=== PATIENT | male | born 1935 | race Caucasian/White ===

== ENCOUNTER → 2018-09-21 | Outpatient (CLI) | payer MEDICARE, BC, OTHER ==
[~2018-09-21] MED LIST: ACET65TA OR; ASPI1TAB PO; COUM1TAB17 OR; DULC5TAB PO; No Historical Meds; PERC5TAB PO; PERC5TAB8 OR; PERC7.5T8 OR; PROT1TAB2 PO
--- NOTE | 2018-09-21 11:03 | REP ---
CT study of the cervical spine without contrast: History: Degenerative disc disease. Technique: Helical scanning is acquired and overlapping 2 mm high resolution axial images were generated and reviewed at bone and soft tissue window settings. Coronal and sagittal multiplanar re-formations images are generated. CT findings: There is straightening of the normal cervical lordosis. Advanced degenerative spondylosis changes are seen. There is irregular osteophyte formation and sclerosis at the articulation between the dens and the anterior arch of C1. There is mild spurring at the C1-2 facet and at the occipital condyles. At C2-3 there is degenerative disc disease with disc osteophyte ossification. The 2-3 disc appears to be fused by bridging osteophytes anteriorly and posteriorly. In addition, the left-sided C2-3 facet joint appears to be fused with hypertrophic spurring noted. There is diffuse disc bulging. Neural foramina appear adequate. At C3-4, there is posterior disc bulging and osteophytic ridging. Bilateral neural foraminal narrowing from uncovertebral spurring is seen, left more so than right. There is some facet hypertrophy bilaterally. Central canal stenosis is noted at L3-4, 6.6 mm AP dimension of the canal in the midline. At C4-5, there is similar less pronounced posterior disc bulging. Bilateral uncovertebral spurring is seen producing mild neural foraminal narrowing at C4-5. This is more prominent on the right than the left. Borderline canal size. At C5-6, there is posterior disc bulging and osteophytic ridging. Bilateral uncovertebral spurring is seen with bilateral neural foraminal narrowing. 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 Mild central canal stenosis is seen at C5-6, the midline AP dimension of the thecal sac is 9.7 mm. At C6-7, there is diffuse disc bulging. Some mild left-sided neural foraminal encroachment is seen from uncovertebral spurring. Borderline canal size. At C7-T1, there is central disc calcification minimal bulging but no neural foraminal narrowing or central canal stenosis is seen. Impression: Fairly advanced degenerative spondylosis changes as noted above. Multilevel neural foraminal narrowing. Central canal stenosis at C3-4. Electronically Signed by Quentin Lo MD 09/21/2018 02:46 P
--- NOTE | 2018-09-21 12:16 | REP ---
Cervical spine MRI study without contrast: History: Neck and arm pain. Comparison cervical spine MRI exam is from May 06, 2016. Comparison CT study is from September 21, 2018. Technique: Sagittal and axial T1 and T2-weighted scans are acquired in the usual fashion with and without fat saturation. Sequences include spin echo, turbo spin-echo, and STIR imaging sequences. MRI findings: There is fairly extensive bony hypertrophy at the C1-2 articulation. This appears to produce moderate central canal stenosis with cord compression. AP dimension of the thecal sac here is 8.6 mm in the midline. There is cord compression along the right side of the canal from bony spurring indenting the cord. This is seen on sagittal images. The axial images do not extend up this high. It appears to be unchanged. No abnormal cord signal intensity is seen at this level. At C2-3, there is posterior disc bulging and osteophytic ridging. No cord compression is seen. Neural foramina appear adequate. At C3-4, there is a left posterior disc protrusion with osteophytic ridging. This effaces the ventral margin of the cord. There is central canal stenosis at this level. Midline AP dimension of the thecal sac at L3-4 is 5.9 mm. There is some dorsal ligamentum flavum hypertrophy here. These findings are unchanged. At C4-5, there is no evidence of central canal stenosis. Mild discogenic spurring is seen. Uncovertebral spurring is noted bilaterally producing some neural foraminal narrowing. This is unchanged. At C5-6, the disc is quite narrowed in vertical height. Posterior osteophytic ridging is seen. This indents the ventral margin of the cord. No overall canal stenosis is seen. Uncovertebral spurring is seen producing neural foraminal narrowing. This is more pronounced on the left. At C6-7, today's study demonstrates a broad-based central disc protrusion flattening the ventral margin of the cord. There is ligamentum flavum hypertrophy dorsally and bilaterally producing central canal stenosis and some cord compression. STIR images demonstrate a new T2 hyperintense lesion in the central cord at the C6-7 disc level consistent with myelomalacia. This is a new finding. The disc protrusion is essentially unchanged. At C7-T1, there is no evidence of disc protrusion or canal stenosis. Neural foramina are adequate. Impression: Advanced degenerative spondylosis changes. Spinal stenosis at the level of the dens and at C6-7. At C6-7 there is a new T2 hyperintense cord lesion consistent with myelomalacia. Electronically Signed by Quentin Lo MD 09/21/2018 02:48 P
== END ==
LOC: M RAD 09:44
PROVIDERS: ATTEND Orthopaedic Surgery
DX: M50.223 Other cervical disc displacement at C6-C7 level (principal); M48.02 Spinal stenosis, cervical region; M50.21 Other cervical disc displacement, high cervical region; M25.78 Osteophyte, vertebrae; M50.31 Other cervical disc degeneration, high cervical region

== ENCOUNTER → 2019-07-16 | Outpatient (CLI) | payer MEDICARE, BC, OTHER ==
--- NOTE | 2019-07-16 19:06 | REPVR ---
PROCEDURE INFORMATION: Exam: MR Lumbar Spine Without Contrast. Exam date and time: 07/16/2019 5:36 PM Age: 83 years old Clinical indication: Pain; Lumbago; Additional info: Radiculopathy TECHNIQUE: Imaging protocol: Multiplanar magnetic resonance images of the lumbar spine without intravenous contrast. COMPARISON: No relevant prior studies available. FINDINGS: Vertebrae: Degenerative spondylosis and shallow levoscoliosis. There are prominent anterior intervertebral osteophytes. Spinal cord: Normal signal. No cord compression. L1-L2: There is a mild central spinal stenosis at L1-L2 secondary to diffuse annular bulging, thickened ligamentum flavum with facet joint arthropathy. There is moderate bilateral foraminal stenosis. No lateral recess stenosis. L2-L3: There is a moderate asymmetrical right greater than left central spinal stenosis at L2-L3 secondary to diffuse annular bulging, thickened ligamentum flavum with facet joint arthropathy. There is severe foraminal stenosis on the right and mild foraminal stenosis on the left. No lateral recess stenosis. L3-L4: There is a mild central spinal stenosis at L3-L4 secondary to diffuse annular bulging, thickened ligamentum flavum with facet joint arthropathy. There is mild foraminal stenosis on the left and severe foraminal stenosis on the right. There is no lateral recess stenosis. L4-L5: There is a mild central spinal stenosis at L4-L5 secondary to diffuse annular bulging, thickened ligamentum flavum with facet joint arthropathy. There is for severe foraminal stenosis on the left and moderate foraminal stenosis on the right. There is mild bilateral lateral recess stenosis demonstrated as well. L5-S1: There is a diffusely bulging annulus at L5-S1 associated with bilateral facet joint arthropathy. There is no central spinal stenosis. There is moderate to severe bilateral foraminal stenosis. There is no lateral recess stenosis. Soft tissues: Unremarkable. IMPRESSION: 1. Degenerative spondylosis with multilevel degenerative spinal stenoses mild at L1-L2, moderate at L2-L3, mild at L3-L4, mild at L4-L5. There is multilevel bilateral foraminal stenoses as described above. 2. Shallow levoscoliosis. Electronically signed by: Tim Brown On 07/16/2019 19:06:14 PM
== END ==
LOC: M RAD 15:07
PROVIDERS: ATTEND Neurological Surgery
DX: M50.30 Other cervical disc degeneration, unspecified cervical region (principal); G57.12 Meralgia paresthetica, left lower limb; G95.9 Disease of spinal cord, unspecified

== ENCOUNTER → 2022-02-21 | Outpatient (CLI) | payer MEDICARE, OTHER, BC | LOC: M PLARAD 14:49 | PROVIDERS: ATTEND Internal Medicine Hematology & Oncology | DX: C44.82 Squamous cell carcinoma of overlapping sites of skin (principal) | CPT/HCPCS: 78815; A9552 ==

== ENCOUNTER → 2022-03-09 | Outpatient (CLI) | payer MEDICARE, BC, OTHER ==
[~2022-03-09] MED LIST changes: +ISOVUE-370 76% 100ML VIAL As Ordered ONE
== END ==
LOC: M RAD 07:51
PROVIDERS: ATTEND Internal Medicine Hematology & Oncology
DX: C44.82 Squamous cell carcinoma of overlapping sites of skin (principal); J01.90 Acute sinusitis, unspecified
CPT/HCPCS: 70470; Q9967

== ENCOUNTER 2023-06-28 06:07 | Emergency (ER) | payer MEDICARE, BC, OTHER ==
[~2023-06-28 06:07] MED LIST changes: +FLOM0.4C39 PO; +GABA800T4 PO; -ISOVUE-370 76% 100ML VIAL As Ordered ONE; +PANT40TA29 PO
[2023-06-28 07:06] LABS: BASO % 0.1 % (0.0-1.0); HEMATOCRIT 33.8 % (42.0-52.0); HEMOGLOBIN 10.6 g/dl (13.5-17.5); LYMPH # 0.7 10^3/uL (1.5-5.0); LYMPH % 3.6 % (24.0-44.0); MEAN CORPUSCULAR HEMOGLOBIN 28.8 pg (27.0-33.0); MEAN CORPUSCULAR HGB CONC 31.4 g/dl (32.0-36.5); MEAN CORPUSCULAR VOLUME 91.8 fl (80.0-96.0); NEUTROPHILS # 15.1 10^3/uL (1.5-8.5); NEUTROPHILS % 78.3 % (36.0-66.0); PLATELET COUNT, AUTOMATED 236 10^3/uL (150-450); RED BLOOD COUNT 3.68 10^6/uL (4.30-6.10); WHITE BLOOD COUNT 19.2 10^3/uL (4.0-10.0)
[2023-06-28 07:19] LABS: MONO # 3.1 10^3/uL (0.0-0.8)
[2023-06-28 07:33] LABS: ALBUMIN 3.2 G/DL (3.2-5.2); ALKALINE PHOSPHATASE 86 U/L (46-116); ALT/SGPT 23 U/L (7.0-40); AST/SGOT 21 U/L (<34); BILIRUBIN,DIRECT 0.3 MG/DL (<0.4); BLOOD UREA NITROGEN 34 MG/DL (9-23); CALCIUM LEVEL 7.8 MG/DL (8.3-10.6); CARBON DIOXIDE LEVEL 25 MMOL/L (20-31); CHLORIDE LEVEL 108 MMOL/L (98-107); CK-MB VALUE MASS < 1.0 NG/ML (<3.6); CPK CREATINE PHOSPHOKINASE 72 U/L (46-171); CREATININE FOR GFR 1.68 MG/DL (0.70-1.30); GLOMERULAR FILTRATION RATE 41.4 (>35); GLUCOSE, FASTING 141 MG/DL (74-106); MB/CK RELATIVE INDEX 1.38 (< OR =4); POTASSIUM SERUM 4.5 MMOL/L (3.5-5.1); SODIUM LEVEL 140 MMOL/L (136-145); TOTAL PROTEIN 6.4 G/DL (5.7-8.2)
[2023-06-28 07:35] LABS: THYROID STIMULATING HORMONE 1.272 uIU/ML (0.55-4.78)
[2023-06-28] MEDS: PIPERACILLIN/TAZOBACTAM SOD 4.5 GM in D5W MINI-BAG PLUS 50 ML IV ONE ×2 (08:10→17:45)
[2023-06-28] MEDS: NS 1,000 ML IV ONE (08:10)
[2023-06-28] MEDS: NS 1,200 ML in IV 1 EA IV ONE (09:02)
[2023-06-28] MEDS: VANCOMYCIN HCL 1,000 MG, VIAL MATE ADAPTER 1 EACH in D5W 250 ML IV ONE ×2 (09:02→17:59)
[2023-06-28] MEDS ORDERED: ACET-683 PO (09:50)
[2023-06-28] MEDS ORDERED: HOME MED LIST COMPLETE! XX SCH (09:50)
[2023-06-28] MEDS ORDERED: ELID1CRE11 TOP (09:50)
[2023-06-28] MEDS: NS 1,000 ML IV SCH (11:10)
[2023-06-28] MEDS: NOREPINEPHRINE 4MG IN D5 250ML 4 MG in IV 1 EA IV SCH (11:56)
[2023-06-28 19:21] VITALS: BP 101/54; TEMP 97.8; O2SAT 96
== END 2023-06-28 19:24 | disposition short-term general hospital (02) ==
LOC: EDBD 06:07 → M ED 06:07
DX: R65.21 Severe sepsis with septic shock (principal); N17.9 Acute kidney failure, unspecified; C44.92 Squamous cell carcinoma of skin, unspecified; T86.822 Skin graft (allograft) (autograft) infection; K21.9 Gastro-esophageal reflux disease without esophagitis; Z79.899 Other long term (current) drug therapy; Z91.89 Other specified personal risk factors, not elsewhere classified
CPT/HCPCS: 36556; 71045; 80048; 80076; 81001; 82550; 82553; 83605; 84443; 84484; 85025; 87040; 87486; 87581; 87633; 87798; 93005; 96365; 96366; 96368; 96375; 96376; 99285; J2543; J3370

== ENCOUNTER 2023-07-12 17:43 | Inpatient (IN) | payer MEDICARE, BC, OTHER ==
[~2023-07-12] VITALS: Ht 172.7 cm; Wt 91.7 kg
[~2023-07-12 17:43] MED LIST changes: +ACET-683 PO; +ELID1CRE11 TOP
[2023-07-12 19:48] LABS: BASO % 0.2 % (0.0-1.0); EOS # 0.1 10^3/uL (0.0-0.5); EOS % 1.5 % (0.0-3.0); HEMATOCRIT 29.9 % (42.0-52.0); HEMOGLOBIN 9.4 g/dl (13.5-17.5); LYMPH # 1.2 10^3/uL (1.5-5.0); LYMPH % 15.1 % (24.0-44.0); MEAN CORPUSCULAR HEMOGLOBIN 28.4 pg (27.0-33.0); MEAN CORPUSCULAR HGB CONC 31.4 g/dl (32.0-36.5); MEAN CORPUSCULAR VOLUME 90.3 fl (80.0-96.0); MONO # 1.5 10^3/uL (0.0-0.8); MONO % 18.5 % (2.0-8.0); NEUTROPHILS # 5.1 10^3/uL (1.5-8.5); NEUTROPHILS % 63.1 % (36.0-66.0); PLATELET COUNT, AUTOMATED 155 10^3/uL (150-450); RED BLOOD COUNT 3.31 10^6/uL (4.30-6.10)
[2023-07-12 19:54] LABS: ERYTHROCYTE SEDIMENTATION RATE 109 mm/hr (0-20)
[2023-07-12] MEDS ORDERED: ISOVUE-370 76% 100ML VIAL As Ordered ONE (20:04)
[2023-07-12] MEDS ORDERED: VANCOMYCIN HCL 1,750 MG in IV FLUID PLACE HOLDER 1 EA IV ONE (20:05)
[2023-07-12] MEDS: PIPERACILLIN/TAZOBACTAM SOD 4.5 GM in D5W MINI-BAG PLUS 50 ML IV ONE (20:08)
[2023-07-12] MEDS: NS 1,000 ML IV ONE (20:08)
[2023-07-12 20:18] LABS: C REACTIVE PROTEIN QUANTITATIV 19.1 MG/DL (<1.0)
[2023-07-12 20:54] LABS: PROCALCITONIN 0.11 ng/ml
[2023-07-12] MEDS: VANCOMYCIN HCL 1,000 MG, VIAL MATE ADAPTER 1 EACH in D5W 250 ML IV ONE (21:24)
[2023-07-12] MEDS: VANCOMYCIN HCL 750 MG, VIAL MATE ADAPTER 1 EACH in D5W 250 ML IV ONE (22:33)
[2023-07-12] MEDS ORDERED: VANCOMYCIN HCL 1,250 MG, VIAL MATE ADAPTER 1 EACH in NS 250 ML IV SCH (23:20)
[2023-07-13] MEDS: NS 1,000 ML IV SCH (00:55)
[2023-07-13 01:26] VITALS: BP 150/86; TEMP 97.8; O2SAT 92
[2023-07-13 06:00] VITALS: BP 118/63; TEMP 97.7; O2SAT 92
[2023-07-13 06:11] LABS: BLOOD UREA NITROGEN 29 MG/DL (9-23); CALCIUM LEVEL 7.8 MG/DL (8.3-10.6); CARBON DIOXIDE LEVEL 24 MMOL/L (20-31); CHLORIDE LEVEL 109 MMOL/L (98-107); CREATININE FOR GFR 1.18 MG/DL (0.70-1.30); GLOMERULAR FILTRATION RATE > 60.0 (>35); GLUCOSE, FASTING 107 MG/DL (74-106); POTASSIUM SERUM 4.4 MMOL/L (3.5-5.1); SODIUM LEVEL 142 MMOL/L (136-145)
[2023-07-13] MEDS ORDERED: SILV50CR EXT (06:17)
[2023-07-13] MEDS ORDERED: BANO25TA PO (06:17)
[2023-07-13] MEDS ORDERED: HOME MED LIST COMPLETE! XX SCH (06:20)
[2023-07-13] MEDS: PANTOPRAZOLE 40MG TAB (PROTONIX) PO SCH ×2 (09:40→20:15)
[2023-07-13 10:11] VITALS: BP 122/86; TEMP 98.6; O2SAT 94
[2023-07-13] MEDS: PIPERACILLIN/TAZOBACTAM SOD 3.375 GM in D5W MINI-BAG PLUS 50 ML IV ONE (11:19)
[2023-07-13 14:28] VITALS: BP 130/65; TEMP 97.9; O2SAT 94
[2023-07-13] MEDS ORDERED: LIDOCAINE 1% MDV 20ML VIAL As Ordered ONE (14:44)
[2023-07-13] MEDS: LACTOBACILLUS ACIDOPHILUS CAP (BACID) PO SCH (14:46)
[2023-07-13] MEDS: VANCOMYCIN HCL 750 MG, VIAL MATE ADAPTER 1 EACH in D5W 250 ML IV SCH (16:59)
[2023-07-13] MEDS: GABAPENTIN 300 MG CAP PO SCH (17:00)
[2023-07-13 18:08] LABS: BASO % 0.3 % (0.0-1.0); EOS # 0.1 10^3/uL (0.0-0.5); EOS % 1.4 % (0.0-3.0); HEMATOCRIT 27.3 % (42.0-52.0); HEMOGLOBIN 8.8 g/dl (13.5-17.5); MEAN CORPUSCULAR HEMOGLOBIN 28.7 pg (27.0-33.0); MEAN CORPUSCULAR HGB CONC 32.2 g/dl (32.0-36.5); MEAN CORPUSCULAR VOLUME 88.9 fl (80.0-96.0); MONO # 1.2 10^3/uL (0.0-0.8); MONO % 17.6 % (2.0-8.0); NEUTROPHILS # 4.5 10^3/uL (1.5-8.5); PLATELET COUNT, AUTOMATED 164 10^3/uL (150-450); RED BLOOD COUNT 3.07 10^6/uL (4.30-6.10)
[2023-07-13] MEDS: VANCOMYCIN HCL 500 MG in D5W MINI-BAG PLUS 100 ML IV SCH (18:21)
[2023-07-13] MEDS: PIPERACILLIN/TAZOBACTAM SOD 3.375 GM in D5W MINI-BAG PLUS 50 ML IV SCH (20:14)
[2023-07-13] MEDS: TAMSULOSIN 0.4 MG CAP PO SCH (20:16)
[2023-07-13 20:49] VITALS: BP 105/55; TEMP 97.7; O2SAT 96
[2023-07-14 07:03] LABS: BASO % 0.5 % (0.0-1.0); EOS # 0.2 10^3/uL (0.0-0.5); EOS % 3.5 % (0.0-3.0); HEMATOCRIT 27.5 % (42.0-52.0); HEMOGLOBIN 8.6 g/dl (13.5-17.5); LYMPH % 17.1 % (24.0-44.0); MEAN CORPUSCULAR HEMOGLOBIN 27.9 pg (27.0-33.0); MEAN CORPUSCULAR HGB CONC 31.3 g/dl (32.0-36.5); MEAN CORPUSCULAR VOLUME 89.3 fl (80.0-96.0); MONO % 16.6 % (2.0-8.0); NEUTROPHILS # 3.5 10^3/uL (1.5-8.5); NEUTROPHILS % 61.1 % (36.0-66.0); PLATELET COUNT, AUTOMATED 165 10^3/uL (150-450); RED BLOOD COUNT 3.08 10^6/uL (4.30-6.10); WHITE BLOOD COUNT 5.8 10^3/uL (4.0-10.0)
[2023-07-14 07:22] LABS: C REACTIVE PROTEIN QUANTITATIV 21.9 MG/DL (<1.0)
[2023-07-14 07:23] LABS: CALCIUM LEVEL 7.9 MG/DL (8.3-10.6); CREATININE FOR GFR 1.27 MG/DL (0.70-1.30); GLOMERULAR FILTRATION RATE 57.2 (>35); POTASSIUM SERUM 4.5 MMOL/L (3.5-5.1)
[2023-07-14 07:29] LABS: PROCALCITONIN 0.11 ng/ml
[2023-07-14] MEDS: HEPARIN SOD (PORCINE) 5000UNITS/ML 1ML VIAL/SYRINGE SQ SCH (09:00)
[2023-07-14] MEDS ORDERED: HEPARIN SOD (PORCINE) 5000UNITS/ML 1ML VIAL/SYRINGE SQ SCH (09:00)
[2023-07-14] MEDS: MUPIROCIN 2% OINT 22 GM TUBE TOP SCH (09:52)
[2023-07-14 14:00] VITALS: BP 105/60; TEMP 98.1; O2SAT 97
[2023-07-14 18:27] LABS: C REACTIVE PROTEIN QUANTITATIV 20.3 MG/DL (<1.0)
[2023-07-14 18:41] LABS: PROCALCITONIN 0.12 ng/ml
[2023-07-14 21:04] VITALS: BP 117/61; TEMP 97.5; O2SAT 96
[2023-07-15 06:00] VITALS: BP 121/62; TEMP 98.2; O2SAT 96
[2023-07-15 07:05] LABS: BASO % 0.5 % (0.0-1.0); EOS # 0.3 10^3/uL (0.0-0.5); EOS % 5.4 % (0.0-3.0); HEMOGLOBIN 8.5 g/dl (13.5-17.5); LYMPH # 1.2 10^3/uL (1.5-5.0); LYMPH % 21.6 % (24.0-44.0); MEAN CORPUSCULAR HGB CONC 31.5 g/dl (32.0-36.5); MEAN CORPUSCULAR VOLUME 88.8 fl (80.0-96.0); MONO # 0.9 10^3/uL (0.0-0.8); MONO % 16.2 % (2.0-8.0); NEUTROPHILS # 3.1 10^3/uL (1.5-8.5); NEUTROPHILS % 54.6 % (36.0-66.0); PLATELET COUNT, AUTOMATED 169 10^3/uL (150-450); RED BLOOD COUNT 3.04 10^6/uL (4.30-6.10); WHITE BLOOD COUNT 5.7 10^3/uL (4.0-10.0)
[2023-07-15 07:26] LABS: CALCIUM LEVEL 7.7 MG/DL (8.3-10.6); CREATININE FOR GFR 1.28 MG/DL (0.70-1.30); GLOMERULAR FILTRATION RATE 56.7 (>35); POTASSIUM SERUM 4.6 MMOL/L (3.5-5.1)
[2023-07-15] MEDS: NS 500 ML IV ONE (08:19)
[2023-07-15] MEDS: ACETAMINOPHEN TAB 650MG DOSE (2X325MG) PO PRN (09:11)
[2023-07-15 14:00] VITALS: BP 134/63; TEMP 97.7; O2SAT 94
[2023-07-15 22:00] VITALS: BP 127/70; TEMP 97.9; O2SAT 96
[2023-07-16 06:34] VITALS: BP 125/68; TEMP 98.1; O2SAT 97
[2023-07-16 06:37] LABS: BASO % 0.4 % (0.0-1.0); EOS # 0.3 10^3/uL (0.0-0.5); EOS % 6.2 % (0.0-3.0); HEMATOCRIT 26.9 % (42.0-52.0); HEMOGLOBIN 8.6 g/dl (13.5-17.5); LYMPH # 0.9 10^3/uL (1.5-5.0); LYMPH % 18.6 % (24.0-44.0); MEAN CORPUSCULAR HEMOGLOBIN 28.6 pg (27.0-33.0); MEAN CORPUSCULAR VOLUME 89.4 fl (80.0-96.0); MONO # 0.8 10^3/uL (0.0-0.8); NEUTROPHILS # 2.9 10^3/uL (1.5-8.5); NEUTROPHILS % 57.8 % (36.0-66.0); PLATELET COUNT, AUTOMATED 168 10^3/uL (150-450); RED BLOOD COUNT 3.01 10^6/uL (4.30-6.10)
[2023-07-16 07:04] LABS: C REACTIVE PROTEIN QUANTITATIV 8.5 MG/DL (<1.0)
[2023-07-16 07:05] LABS: CALCIUM LEVEL 7.5 MG/DL (8.3-10.6); CREATININE FOR GFR 1.28 MG/DL (0.70-1.30); GLOMERULAR FILTRATION RATE 56.7 (>35); POTASSIUM SERUM 4.8 MMOL/L (3.5-5.1)
[2023-07-16 14:10] VITALS: BP 122/66; TEMP 97.9; O2SAT 97
[2023-07-16 20:39] VITALS: BP 130/74; TEMP 97.9; O2SAT 98
[2023-07-17 06:11] VITALS: BP 130/73; TEMP 98.1; O2SAT 96
[2023-07-17 06:54] LABS: BASO % 0.4 % (0.0-1.0); EOS # 0.3 10^3/uL (0.0-0.5); EOS % 5.9 % (0.0-3.0); HEMATOCRIT 30.9 % (42.0-52.0); HEMOGLOBIN 9.6 g/dl (13.5-17.5); LYMPH # 1.4 10^3/uL (1.5-5.0); LYMPH % 25.5 % (24.0-44.0); MEAN CORPUSCULAR HEMOGLOBIN 27.7 pg (27.0-33.0); MEAN CORPUSCULAR HGB CONC 31.1 g/dl (32.0-36.5); MEAN CORPUSCULAR VOLUME 89.3 fl (80.0-96.0); MONO # 0.8 10^3/uL (0.0-0.8); MONO % 13.8 % (2.0-8.0); NEUTROPHILS # 2.9 10^3/uL (1.5-8.5); NEUTROPHILS % 53.1 % (36.0-66.0); PLATELET COUNT, AUTOMATED 189 10^3/uL (150-450); RED BLOOD COUNT 3.46 10^6/uL (4.30-6.10); WHITE BLOOD COUNT 5.4 10^3/uL (4.0-10.0)
[2023-07-17 07:23] LABS: C REACTIVE PROTEIN QUANTITATIV 8.3 MG/DL (<1.0)
[2023-07-17 07:25] LABS: CALCIUM LEVEL 7.9 MG/DL (8.3-10.6); CREATININE FOR GFR 1.29 MG/DL (0.70-1.30); GLOMERULAR FILTRATION RATE 56.2 (>35); MAGNESIUM LEVEL 2.2 MG/DL (1.8-2.4); POTASSIUM SERUM 4.8 MMOL/L (3.5-5.1)
[2023-07-17 14:16] VITALS: BP 128/67; TEMP 98.1; O2SAT 97
[2023-07-17 20:15] VITALS: BP 127/71; TEMP 98.1; O2SAT 95
[2023-07-17] MEDS: BALMEX CREAM 60GM TOP SCH (21:41)
[2023-07-18 04:18] VITALS: BP 109/56; TEMP 98.1; O2SAT 92
[2023-07-18 07:30] VITALS: BP 124/72; TEMP 98.2; O2SAT 93
[2023-07-18 07:36] LABS: BASO % 0.3 % (0.0-1.0); EOS # 0.3 10^3/uL (0.0-0.5); EOS % 5.2 % (0.0-3.0); HEMATOCRIT 30.1 % (42.0-52.0); HEMOGLOBIN 9.4 g/dl (13.5-17.5); LYMPH # 1.3 10^3/uL (1.5-5.0); LYMPH % 20.9 % (24.0-44.0); MEAN CORPUSCULAR HGB CONC 31.2 g/dl (32.0-36.5); MEAN CORPUSCULAR VOLUME 89.6 fl (80.0-96.0); MONO # 0.9 10^3/uL (0.0-0.8); MONO % 14.7 % (2.0-8.0); NEUTROPHILS # 3.6 10^3/uL (1.5-8.5); NEUTROPHILS % 57.5 % (36.0-66.0); PLATELET COUNT, AUTOMATED 190 10^3/uL (150-450); RED BLOOD COUNT 3.36 10^6/uL (4.30-6.10); WHITE BLOOD COUNT 6.3 10^3/uL (4.0-10.0)
[2023-07-18 14:14] VITALS: BP 133/78; TEMP 97.9; O2SAT 97
[2023-07-19] MEDS: HYDROMORPHONE HCL 0.5 MG/ 0.5 ML SYRINGE IV PRN (01:18)
[2023-07-19 06:46] VITALS: BP 125/61; TEMP 97.9; O2SAT 96
[2023-07-19 07:16] LABS: BASO % 0.2 % (0.0-1.0); EOS # 0.3 10^3/uL (0.0-0.5); EOS % 5.5 % (0.0-3.0); HEMOGLOBIN 8.8 g/dl (13.5-17.5); LYMPH # 1.3 10^3/uL (1.5-5.0); MEAN CORPUSCULAR HEMOGLOBIN 28.1 pg (27.0-33.0); MEAN CORPUSCULAR HGB CONC 31.4 g/dl (32.0-36.5); MEAN CORPUSCULAR VOLUME 89.5 fl (80.0-96.0); MONO # 0.9 10^3/uL (0.0-0.8); MONO % 16.2 % (2.0-8.0); NEUTROPHILS # 2.9 10^3/uL (1.5-8.5); NEUTROPHILS % 53.3 % (36.0-66.0); PLATELET COUNT, AUTOMATED 190 10^3/uL (150-450); RED BLOOD COUNT 3.13 10^6/uL (4.30-6.10); WHITE BLOOD COUNT 5.5 10^3/uL (4.0-10.0)
[2023-07-19 14:00] VITALS: BP 126/80; TEMP 97.9; O2SAT 100
[2023-07-19 20:29] VITALS: BP 134/71; TEMP 98.2; O2SAT 99
[2023-07-20 06:37] VITALS: BP 119/60; TEMP 98.4; O2SAT 97
[2023-07-20 07:12] LABS: BASO % 0.3 % (0.0-1.0); EOS # 0.3 10^3/uL (0.0-0.5); EOS % 5.9 % (0.0-3.0); HEMATOCRIT 27.8 % (42.0-52.0); HEMOGLOBIN 8.8 g/dl (13.5-17.5); LYMPH # 1.3 10^3/uL (1.5-5.0); LYMPH % 21.8 % (24.0-44.0); MEAN CORPUSCULAR HEMOGLOBIN 28.1 pg (27.0-33.0); MEAN CORPUSCULAR HGB CONC 31.7 g/dl (32.0-36.5); MEAN CORPUSCULAR VOLUME 88.8 fl (80.0-96.0); MONO # 0.9 10^3/uL (0.0-0.8); MONO % 15.9 % (2.0-8.0); NEUTROPHILS # 3.1 10^3/uL (1.5-8.5); NEUTROPHILS % 54.2 % (36.0-66.0); PLATELET COUNT, AUTOMATED 200 10^3/uL (150-450); RED BLOOD COUNT 3.13 10^6/uL (4.30-6.10); WHITE BLOOD COUNT 5.8 10^3/uL (4.0-10.0)
[2023-07-20 14:00] VITALS: TEMP 97.3; TEMP 98.4; O2SAT 94; O2SAT 96
[2023-07-20 19:49] VITALS: BP 108/60; TEMP 98.4; O2SAT 95
[2023-07-21 04:18] VITALS: BP 145/69; TEMP 98.2; O2SAT 96
[2023-07-21 06:29] LABS: BASO % 0.3 % (0.0-1.0); EOS # 0.4 10^3/uL (0.0-0.5); EOS % 6.4 % (0.0-3.0); HEMATOCRIT 26.8 % (42.0-52.0); HEMOGLOBIN 8.4 g/dl (13.5-17.5); LYMPH # 1.2 10^3/uL (1.5-5.0); LYMPH % 20.1 % (24.0-44.0); MEAN CORPUSCULAR HEMOGLOBIN 27.7 pg (27.0-33.0); MEAN CORPUSCULAR HGB CONC 31.3 g/dl (32.0-36.5); MEAN CORPUSCULAR VOLUME 88.4 fl (80.0-96.0); MONO % 16.2 % (2.0-8.0); NEUTROPHILS # 3.3 10^3/uL (1.5-8.5); NEUTROPHILS % 55.5 % (36.0-66.0); PLATELET COUNT, AUTOMATED 189 10^3/uL (150-450); RED BLOOD COUNT 3.03 10^6/uL (4.30-6.10); WHITE BLOOD COUNT 5.9 10^3/uL (4.0-10.0)
[2023-07-21 13:55] VITALS: BP 125/64; TEMP 98.5; O2SAT 97
[2023-07-21] MEDS: LINEZOLID 600MG TABLET (ZYVOX) PO SCH (14:12)
[2023-07-21 14:54] LABS: CREATININE FOR GFR 1.51 MG/DL (0.70-1.30); GLOMERULAR FILTRATION RATE 46.9 (>35); POTASSIUM SERUM 4.5 MMOL/L (3.5-5.1)
[2023-07-21] MEDS: ENOXAPARIN 100MG/1ML SYRINGE (J1650 PER 10MG) SC SCH (16:58)
[2023-07-21] MEDS: NS 1,000 ML IV SCH (16:58)
[2023-07-21] MEDS ORDERED: PIPERACILLIN/TAZOBACTAM SOD 2.25 GM in D5W MINI-BAG PLUS 50 ML IV SCH (18:00)
[2023-07-21] MEDS: PIPERACILLIN/TAZOBACTAM SOD 2.25 GM in D5W MINI-BAG PLUS 50 ML IV SCH (19:49)
[2023-07-21 19:57] VITALS: BP 132/68; TEMP 97.9; O2SAT 98
[2023-07-22 07:04] VITALS: BP 129/66; TEMP 97.9; O2SAT 96
[2023-07-22 07:23] LABS: BASO % 0.4 % (0.0-1.0); EOS # 0.4 10^3/uL (0.0-0.5); EOS % 6.2 % (0.0-3.0); HEMATOCRIT 28.4 % (42.0-52.0); HEMOGLOBIN 8.8 g/dl (13.5-17.5); LYMPH # 1.3 10^3/uL (1.5-5.0); LYMPH % 23.1 % (24.0-44.0); MEAN CORPUSCULAR HEMOGLOBIN 27.7 pg (27.0-33.0); MEAN CORPUSCULAR VOLUME 89.3 fl (80.0-96.0); MONO # 0.9 10^3/uL (0.0-0.8); NEUTROPHILS # 2.8 10^3/uL (1.5-8.5); NEUTROPHILS % 50.4 % (36.0-66.0); PLATELET COUNT, AUTOMATED 207 10^3/uL (150-450); RED BLOOD COUNT 3.18 10^6/uL (4.30-6.10); WHITE BLOOD COUNT 5.6 10^3/uL (4.0-10.0)
[2023-07-22 07:46] LABS: CALCIUM LEVEL 7.8 MG/DL (8.3-10.6); CREATININE FOR GFR 1.26 MG/DL (0.70-1.30); GLOMERULAR FILTRATION RATE 57.8 (>35); POTASSIUM SERUM 4.5 MMOL/L (3.5-5.1)
[2023-07-22 14:39] VITALS: BP 138/76; TEMP 98.1; O2SAT 98
[2023-07-22 19:56] VITALS: BP 139/72; TEMP 98.2; O2SAT 97
[2023-07-23 04:53] VITALS: BP 131/63; TEMP 97.9; O2SAT 98
[2023-07-23 07:58] LABS: BASO % 0.4 % (0.0-1.0); EOS # 0.3 10^3/uL (0.0-0.5); HEMATOCRIT 28.4 % (42.0-52.0); LYMPH # 1.2 10^3/uL (1.5-5.0); LYMPH % 22.1 % (24.0-44.0); MEAN CORPUSCULAR HGB CONC 31.7 g/dl (32.0-36.5); MEAN CORPUSCULAR VOLUME 88.2 fl (80.0-96.0); MONO # 0.9 10^3/uL (0.0-0.8); MONO % 16.2 % (2.0-8.0); NEUTROPHILS % 53.9 % (36.0-66.0); PLATELET COUNT, AUTOMATED 222 10^3/uL (150-450); RED BLOOD COUNT 3.22 10^6/uL (4.30-6.10); WHITE BLOOD COUNT 5.6 10^3/uL (4.0-10.0)
[2023-07-23 08:35] LABS: CALCIUM LEVEL 7.8 MG/DL (8.3-10.6); CREATININE FOR GFR 1.29 MG/DL (0.70-1.30); GLOMERULAR FILTRATION RATE 56.2 (>35); POTASSIUM SERUM 4.4 MMOL/L (3.5-5.1)
[2023-07-23] MEDS: ONDANSETRON 4MG 2ML VIAL IV PRN (08:55)
[2023-07-23 14:08] VITALS: BP 127/67; TEMP 98.3; O2SAT 98
[2023-07-23] MEDS: PIPERACILLIN/TAZOBACTAM SOD 3.375 GM in D5W MINI-BAG PLUS 50 ML IV SCH (19:54)
[2023-07-23 22:11] VITALS: BP 129/64; TEMP 98.1; O2SAT 97
[2023-07-24 05:09] VITALS: BP 117/65; TEMP 97.7; O2SAT 98
[2023-07-24 06:46] LABS: BASO % 0.5 % (0.0-1.0); EOS # 0.3 10^3/uL (0.0-0.5); EOS % 5.4 % (0.0-3.0); HEMATOCRIT 29.3 % (42.0-52.0); HEMOGLOBIN 9.2 g/dl (13.5-17.5); LYMPH # 1.1 10^3/uL (1.5-5.0); LYMPH % 20.4 % (24.0-44.0); MEAN CORPUSCULAR HGB CONC 31.4 g/dl (32.0-36.5); MEAN CORPUSCULAR VOLUME 89.1 fl (80.0-96.0); MONO % 17.3 % (2.0-8.0); NEUTROPHILS % 53.9 % (36.0-66.0); PLATELET COUNT, AUTOMATED 216 10^3/uL (150-450); RED BLOOD COUNT 3.29 10^6/uL (4.30-6.10); WHITE BLOOD COUNT 5.6 10^3/uL (4.0-10.0)
[2023-07-24 07:12] LABS: CALCIUM LEVEL 8.2 MG/DL (8.3-10.6); CREATININE FOR GFR 1.38 MG/DL (0.70-1.30); POTASSIUM SERUM 4.6 MMOL/L (3.5-5.1)
[2023-07-24] MEDS: NS 1,000 ML IV SCH (11:00)
[2023-07-24] MEDS: MAALOX 30 ML SUSP *UDC PO PRN (12:29)
[2023-07-24 14:00] VITALS: BP 130/70; TEMP 97.4; O2SAT 97
[2023-07-24] MEDS: MIRALAX *UNIT DOSE* 17GM PACKET PO PRN (15:01)
[2023-07-24] MEDS: LORazepam 0.5 MG TAB PO ONE (21:27)
== END 2023-07-24 21:30 | disposition short-term general hospital (02) | DRG 862 ==
LOC: M ED 17:43 → M ED INP 23:16 → M MSPAV 07-13 01:26 → M MS5PR 07-13 18:40
PROVIDERS: ADMIT Internal Medicine; ATTEND Internal Medicine
PROC: 0W9830Z Drainage of Chest Wall with Drainage Device, Percutaneous Approach (ICD-10-PCS; 2023-07-13)
PROC: B246ZZZ Ultrasonography of Right and Left Heart (ICD-10-PCS; principal; 2023-07-21)
DX: T81.41XA Infection following a procedure, superficial incisional surgical site, initial encounter (principal); I26.99 Other pulmonary embolism without acute cor pulmonale; L76.33 Postprocedural seroma of skin and subcutaneous tissue following a dermatologic procedure; L03.111 Cellulitis of right axilla; L03.313 Cellulitis of chest wall; N17.9 Acute kidney failure, unspecified; K21.9 Gastro-esophageal reflux disease without esophagitis; Y83.8 Other surgical procedures as the cause of abnormal reaction of the patient, or of later complication, without mention of misadventure at the time of the procedure; N40.1 Benign prostatic hyperplasia with lower urinary tract symptoms; G89.29 Other chronic pain; D64.9 Anemia, unspecified; G62.9 Polyneuropathy, unspecified; Z92.3 Personal history of irradiation; N18.9 Chronic kidney disease, unspecified; Z79.899 Other long term (current) drug therapy; Z94.5 Skin transplant status; Z96.643 Presence of artificial hip joint, bilateral; Z92.23 Personal history of estrogen therapy; Z85.79 Personal history of other malignant neoplasms of lymphoid, hematopoietic and related tissues; Z85.828 Personal history of other malignant neoplasm of skin

== ENCOUNTER 2023-08-07 13:12 | Emergency (ER) | payer MEDICARE, BC ==
[~2023-08-07] VITALS: Ht 170.2 cm; Wt 90.6 kg
[~2023-08-07 13:12] MED LIST changes: +BANO25TA PO; +SILV50CR EXT
[2023-08-07 17:42] LABS: BASO % 0.4 % (0.0-1.0); EOS # 0.2 10^3/uL (0.0-0.5); EOS % 4.5 % (0.0-3.0); HEMATOCRIT 31.7 % (42.0-52.0); HEMOGLOBIN 9.6 g/dl (13.5-17.5); LYMPH # 1.7 10^3/uL (1.5-5.0); LYMPH % 34.5 % (24.0-44.0); MEAN CORPUSCULAR HEMOGLOBIN 27.3 pg (27.0-33.0); MEAN CORPUSCULAR HGB CONC 30.3 g/dl (32.0-36.5); MEAN CORPUSCULAR VOLUME 90.1 fl (80.0-96.0); MONO # 0.8 10^3/uL (0.0-0.8); MONO % 15.6 % (2.0-8.0); NEUTROPHILS # 2.2 10^3/uL (1.5-8.5); NEUTROPHILS % 43.8 % (36.0-66.0); PLATELET COUNT, AUTOMATED 193 10^3/uL (150-450); RED BLOOD COUNT 3.52 10^6/uL (4.30-6.10); WHITE BLOOD COUNT 4.9 10^3/uL (4.0-10.0)
[2023-08-07 18:15] LABS: ALBUMIN 2.8 G/DL (3.2-5.2); ALKALINE PHOSPHATASE 104 U/L (46-116); ALT/SGPT 28 U/L (7.0-40); AST/SGOT 34 U/L (<34); BILIRUBIN,DIRECT 0.1 MG/DL (<0.4); BILIRUBIN,TOTAL 0.5 MG/DL (0.3-1.2); BLOOD UREA NITROGEN 30 MG/DL (9-23); CALCIUM LEVEL 8.3 MG/DL (8.3-10.6); CARBON DIOXIDE LEVEL 24 MMOL/L (20-31); CHLORIDE LEVEL 106 MMOL/L (98-107); CREATININE FOR GFR 1.08 MG/DL (0.70-1.30); GLOMERULAR FILTRATION RATE > 60.0 (>35); GLUCOSE, FASTING 101 MG/DL (74-106); POTASSIUM SERUM 5.1 MMOL/L (3.5-5.1); SODIUM LEVEL 138 MMOL/L (136-145); TOTAL PROTEIN 7.6 G/DL (5.7-8.2)
[2023-08-07 18:26] LABS: PROCALCITONIN 0.15 ng/ml
[2023-08-07] MEDS ORDERED: ISOVUE-370 76% 100ML VIAL As Ordered ONE (18:44)
[2023-08-07] MEDS ORDERED: ENOXAPARIN 100MG/1ML SYRINGE (J1650 PER 10MG) SC ONE (21:15)
[2023-08-07 21:20] VITALS: BP 136/66; TEMP 98; O2SAT 97
[2023-08-07] MEDS: ENOXAPARIN 100MG/1ML SYRINGE (J1650 PER 10MG) SC ONE (21:25)
== END 2023-08-07 21:33 | disposition home or self-care (01) ==
LOC: M ED 13:12
DX: L76.34 Postprocedural seroma of skin and subcutaneous tissue following other procedure (principal); Z79.899 Other long term (current) drug therapy
CPT/HCPCS: 71045; 71260; 74177; 80048; 80076; 83605; 84145; 85025; 86140; 87040; 93005; 96372; 99284; J1650; Q9967

== ENCOUNTER → 2024-05-29 | Outpatient (CLI) | payer MEDICARE, BC ==
[~2024-05-29] MED LIST changes: +GABA-1635 PO; -GABA800T4 PO
[2024-05-29 13:38] LABS: CALCIUM LEVEL 8.4 MG/DL (8.3-10.6); CREATININE FOR GFR 1.65 MG/DL (0.70-1.30); GLOMERULAR FILTRATION RATE 42.2 (>35); POTASSIUM SERUM 4.4 MMOL/L (3.5-5.1)
[2024-05-29 14:00] LABS: BASO % 0.1 % (0.0-1.0); HEMATOCRIT 35.9 % (42.0-52.0); HEMOGLOBIN 11.5 g/dl (13.5-17.5); LYMPH # 1.3 10^3/uL (1.5-5.0); LYMPH % 14.5 % (24.0-44.0); MEAN CORPUSCULAR HEMOGLOBIN 26.7 pg (27.0-33.0); MEAN CORPUSCULAR VOLUME 83.3 fl (80.0-96.0); MONO # 0.7 10^3/uL (0.0-0.8); MONO % 8.3 % (2.0-8.0); NEUTROPHILS # 6.6 10^3/uL (1.5-8.5); NEUTROPHILS % 75.3 % (36.0-66.0); PLATELET COUNT, AUTOMATED 189 10^3/uL (150-450); RED BLOOD COUNT 4.31 10^6/uL (4.30-6.10); WHITE BLOOD COUNT 8.8 10^3/uL (4.0-10.0)
[2024-05-29 14:05] LABS: ERYTHROCYTE SEDIMENTATION RATE 66 mm/hr (0-20)
== END ==
LOC: M ADAMS 10:31
PROVIDERS: ATTEND Internal Medicine
DX: J15.8 Pneumonia due to other specified bacteria (principal)

== ENCOUNTER 2024-06-11 21:15 | Inpatient (IN) | payer MEDICARE, BC ==
[~2024-06-11] VITALS: Ht 172.7 cm; Wt 84.1 kg
[2024-06-11] MEDS ORDERED: ELIQ5TAB PO (22:01)
[2024-06-11] MEDS ORDERED: RISP1SS PO (22:01)
[2024-06-11] MEDS ORDERED: ROPI5TAB19 PO (22:01)
[2024-06-11 22:22] LABS: VENOUS BASE EXCESS -1.3 (-2.0-2.0); VENOUS HCO3 24.1 MMOL/L (23.0-27.0); VENOUS O2 SATURATION 80.2 % (60.0-80.0); VENOUS PARTIAL PRESSURE CO2 43.2 mmHg (38.0-50.0); VENOUS PARTIAL PRESSURE O2 46.1 mmHg (30.0-50.0); VENOUS PH 7.365 UNITS (7.330-7.430); VENOUS TOTAL CO2 25.5 MMOL/L (24.0-28.0)
[2024-06-11] MEDS ORDERED: ISOVUE-370 76% 100ML VIAL As Ordered ONE (22:28)
[2024-06-11 22:29] LABS: BASO % 0.2 % (0.0-1.0); EOS % 0.2 % (0.0-3.0); HEMATOCRIT 36.8 % (42.0-52.0); HEMOGLOBIN 11.8 g/dl (13.5-17.5); LYMPH # 0.9 10^3/uL (1.5-5.0); LYMPH % 4.7 % (24.0-44.0); MEAN CORPUSCULAR HEMOGLOBIN 26.6 pg (27.0-33.0); MEAN CORPUSCULAR HGB CONC 32.1 g/dl (32.0-36.5); MEAN CORPUSCULAR VOLUME 82.9 fl (80.0-96.0); MONO # 2.3 10^3/uL (0.0-0.8); MONO % 11.8 % (2.0-8.0); NEUTROPHILS # 16.2 10^3/uL (1.5-8.5); NEUTROPHILS % 81.5 % (36.0-66.0); PLATELET COUNT, AUTOMATED 182 10^3/uL (150-450); RED BLOOD COUNT 4.44 10^6/uL (4.30-6.10); WHITE BLOOD COUNT 19.8 10^3/uL (4.0-10.0)
[2024-06-11 22:50] LABS: CK-MB VALUE MASS < 1.0 NG/ML (<3.6)
[2024-06-11 22:52] LABS: ALBUMIN 3.3 G/DL (3.2-5.2); ALKALINE PHOSPHATASE 105 U/L (40-129); ALT/SGPT 29 U/L (7.0-40); AST/SGOT 27 U/L (<34); BILIRUBIN,DIRECT 0.4 MG/DL (<0.4); BILIRUBIN,TOTAL 1.4 MG/DL (0.3-1.2); BLOOD UREA NITROGEN 35 MG/DL (9-23); CALCIUM LEVEL 8.9 MG/DL (8.3-10.6); CARBON DIOXIDE LEVEL 28 MMOL/L (20-31); CHLORIDE LEVEL 104 MMOL/L (98-107); CPK CREATINE PHOSPHOKINASE 40 U/L (46-171); CREATININE FOR GFR 1.33 MG/DL (0.70-1.30); GLOMERULAR FILTRATION RATE 54.1 (>35); GLUCOSE, FASTING 114 MG/DL (74-106); POTASSIUM SERUM 4.8 MMOL/L (3.5-5.1); SODIUM LEVEL 138 MMOL/L (136-145); TOTAL PROTEIN 6.8 G/DL (5.7-8.2)
[2024-06-11] MEDS ORDERED: IPRA0.00 INH (23:51)
[2024-06-11] MEDS ORDERED: HYDR-3719 PO (23:51)
[2024-06-11] MEDS ORDERED: RISP0.253 PO (23:51)
[2024-06-11] MEDS ORDERED: SILV50CR TOP (23:53)
[2024-06-11] MEDS ORDERED: HOME MED LIST COMPLETE! XX SCH (23:55)
[2024-06-12 00:42] LABS: CK-MB VALUE MASS < 1.0 NG/ML (<3.6)
[2024-06-12 00:44] LABS: CPK CREATINE PHOSPHOKINASE 31 U/L (46-171); MB/CK RELATIVE INDEX 3.22 (< OR =4)
[2024-06-12] MEDS ORDERED: MAALOX 30 ML SUSP *UDC PO PRN (04:40)
[2024-06-12] MEDS ORDERED: LEVALBUTEROL 1.25MG 0.5ML CONCENTRATE NEB INH PRN (04:40)
[2024-06-12] MEDS ORDERED: MOM 30ML SUSPENSION UDC PO PRN (04:40)
[2024-06-12 06:57] LABS: PROCALCITONIN 0.98 ng/ml
[2024-06-12] MEDS: IPRATROPIUM 0.5MG/ALBUTEROL 2.5MG INH SOL UD 3ML (DUONEB) NEB SCH (07:29)
[2024-06-12 08:00] VITALS: BP 121/62; TEMP 98.2; O2SAT 90
[2024-06-12 08:35] LABS: CALCIUM LEVEL 8.3 MG/DL (8.3-10.6); CREATININE FOR GFR 1.25 MG/DL (0.70-1.30); GLOMERULAR FILTRATION RATE 58.2 (>35); POTASSIUM SERUM 4.8 MMOL/L (3.5-5.1)
[2024-06-12] MEDS ORDERED: OSELTAMIVIR PHOSPHATE 75 MG CAP (TAMIFLU) PO SCH (09:00)
[2024-06-12] MEDS: predniSONE 20 MG TAB PO SCH (09:05)
[2024-06-12] MEDS: DOCUSATE SODIUM 100MG CAPSULE PO SCH (09:05)
[2024-06-12] MEDS: APIXABAN 5 MG TAB (ELIQUIS) PO SCH (09:05)
[2024-06-12] MEDS: OSELTAMIVIR PHOSPHATE 30MG CAPSULE PO SCH (09:19)
[2024-06-12 09:24] LABS: BASO % 0.1 % (0.0-1.0); EOS # 0.1 10^3/uL (0.0-0.5); EOS % 0.7 % (0.0-3.0); HEMATOCRIT 35.7 % (42.0-52.0); HEMOGLOBIN 11.3 g/dl (13.5-17.5); LYMPH # 2.1 10^3/uL (1.5-5.0); LYMPH % 12.3 % (24.0-44.0); MEAN CORPUSCULAR HEMOGLOBIN 26.5 pg (27.0-33.0); MEAN CORPUSCULAR HGB CONC 31.7 g/dl (32.0-36.5); MEAN CORPUSCULAR VOLUME 83.6 fl (80.0-96.0); MONO # 2.3 10^3/uL (0.0-0.8); MONO % 13.5 % (2.0-8.0); NEUTROPHILS % 72.1 % (36.0-66.0); PLATELET COUNT, AUTOMATED 165 10^3/uL (150-450); RED BLOOD COUNT 4.27 10^6/uL (4.30-6.10); WHITE BLOOD COUNT 16.7 10^3/uL (4.0-10.0)
[2024-06-12] MEDS: GABAPENTIN 400MG CAP PO SCH (11:40)
[2024-06-12] MEDS: rOPINIRole 0.25 MG TAB(REQUIP) PO SCH (11:41)
[2024-06-12] MEDS: PANTOPRAZOLE 40MG TAB (PROTONIX) PO SCH (11:41)
[2024-06-12] MEDS: AUGMENTIN 875 MG TAB PO SCH (11:41)
[2024-06-12] MEDS: NS (Normal Saline) 0.9% 1,000 ML IV SCH (11:41)
[2024-06-12 12:55] VITALS: BP 133/80; TEMP 98.1; O2SAT 92
[2024-06-12 14:12] LABS: KETONE, URINE AUTO RFX NEGATIVE (NEGATIVE); LEUKOCYTE ESTERASE UR AUTO RFX NEGATIVE (NEGATIVE); NITRITE, URINE AUTO RFX NEGATIVE (NEGATIVE); RBC, URINE AUTO RFX 0 /HPF (0-3); SQUAM EPITHELIAL CELL UR AURFX 0 /HPF (0-6); WBC, URINE AUTO RFX 0 /HPF (0-3)
[2024-06-12] MEDS: ACETAMINOPHEN 325 MG TAB PO PRN (16:51)
[2024-06-12 18:25] VITALS: O2SAT 77; O2SAT 92
[2024-06-12 19:58] VITALS: BP 128/61; TEMP 97.9; O2SAT 96
[2024-06-12] MEDS: TAMSULOSIN 0.4 MG CAP PO SCH (20:58)
[2024-06-12] MEDS ORDERED: FLUID PLACE HOLDER IV SCH (22:50)
[2024-06-12] MEDS ORDERED: VANCOMYCIN HCL IV SCH (22:50)
[2024-06-12] MEDS: VANCOMYCIN HCL 2,000 MG, VIAL MATE ADAPTER 1 EACH in NS 500 ML IV ONE (23:31)
[2024-06-13] VITALS: BP 108/52; TEMP 97.7; O2SAT 96
[2024-06-13 04:12] VITALS: BP 113/60; TEMP 97.9; O2SAT 98
[2024-06-13 06:52] LABS: HEMATOCRIT 30.8 % (42.0-52.0); HEMOGLOBIN 9.8 g/dl (13.5-17.5); MEAN CORPUSCULAR HEMOGLOBIN 26.7 pg (27.0-33.0); MEAN CORPUSCULAR HGB CONC 31.8 g/dl (32.0-36.5); MEAN CORPUSCULAR VOLUME 83.9 fl (80.0-96.0); PLATELET COUNT, AUTOMATED 134 10^3/uL (150-450); RED BLOOD COUNT 3.67 10^6/uL (4.30-6.10); WHITE BLOOD COUNT 7.1 10^3/uL (4.0-10.0)
[2024-06-13 07:32] LABS: ALBUMIN 2.6 G/DL (3.2-5.2); CALCIUM LEVEL 8.1 MG/DL (8.3-10.6); CREATININE FOR GFR 1.23 MG/DL (0.70-1.30); GLOMERULAR FILTRATION RATE 59.3 (>35); POTASSIUM SERUM 4.5 MMOL/L (3.5-5.1); TOTAL PROTEIN 5.6 G/DL (5.7-8.2)
[2024-06-13 08:57] VITALS: O2SAT 2
[2024-06-13] MEDS ORDERED: VANCOMYCIN HCL 1,250 MG, VIAL MATE ADAPTER 1 EACH in NS 250 ML IV SCH (09:00)
[2024-06-13 12:00] VITALS: BP 118/62; TEMP 97.7; O2SAT 96
[2024-06-13 20:00] VITALS: BP 114/62; TEMP 97.5; O2SAT 95
[2024-06-14 04:00] VITALS: BP 114/63; TEMP 98.4; O2SAT 92
[2024-06-14 09:47] LABS: MEAN CORPUSCULAR HEMOGLOBIN 26.6 pg (27.0-33.0); MEAN CORPUSCULAR HGB CONC 31.4 g/dl (32.0-36.5); MEAN CORPUSCULAR VOLUME 84.5 fl (80.0-96.0); PLATELET COUNT, AUTOMATED 147 10^3/uL (150-450); RED BLOOD COUNT 4.14 10^6/uL (4.30-6.10); WHITE BLOOD COUNT 6.9 10^3/uL (4.0-10.0)
[2024-06-14 10:16] LABS: BLOOD UREA NITROGEN 35 MG/DL (9-23); CARBON DIOXIDE LEVEL 24 MMOL/L (20-31); CHLORIDE LEVEL 108 MMOL/L (98-107); CREATININE FOR GFR 1.16 MG/DL (0.70-1.30); GLOMERULAR FILTRATION RATE > 60.0 (>35); GLUCOSE, FASTING 113 MG/DL (74-106); POTASSIUM SERUM 4.7 MMOL/L (3.5-5.1); SODIUM LEVEL 141 MMOL/L (136-145)
[2024-06-14] MEDS ORDERED: AMOX875T2 PO (11:09)
[2024-06-14] MEDS ORDERED: OSEL30CA PO (11:09)
== END 2024-06-14 12:29 | disposition home or self-care (01) | DRG 194 ==
LOC: EDBD 21:15 → M ED 21:15 → M ED INP 06-12 04:36 → M MSPAV 06-12 05:35
PROVIDERS: ADMIT Student in an Organized Health Care Education/Training Program; ATTEND Internal Medicine
DX: J10.1 Influenza due to other identified influenza virus with other respiratory manifestations (principal); I50.32 Chronic diastolic (congestive) heart failure; N13.8 Other obstructive and reflux uropathy; N40.1 Benign prostatic hyperplasia with lower urinary tract symptoms; N18.9 Chronic kidney disease, unspecified; R09.02 Hypoxemia; K21.9 Gastro-esophageal reflux disease without esophagitis; R53.1 Weakness; I70.0 Atherosclerosis of aorta; J32.9 Chronic sinusitis, unspecified; Z85.828 Personal history of other malignant neoplasm of skin; Z96.643 Presence of artificial hip joint, bilateral; Z79.01 Long term (current) use of anticoagulants; Z79.899 Other long term (current) drug therapy; Z91.048 Other nonmedicinal substance allergy status; Z86.711 Personal history of pulmonary embolism; Z86.16 Personal history of COVID-19

== ENCOUNTER 2024-09-09 13:05 | Emergency (ER) | payer BC, MEDICARE ==
[~2024-09-09] VITALS: Ht 167.6 cm; Wt 90.0 kg
[~2024-09-09 13:05] MED LIST changes: +AMOX875T2 PO; +ELIQ5TAB PO; -FLOM0.4C39 PO; +HYDR-3719 PO; +IPRA0.00 INH; +OSEL30CA PO; +RISP0.253 PO; +RISP1SS PO; +ROPI5TAB19 PO; +SILV50CR TOP; +TAMS-18 PO
[2024-09-09 13:14] VITALS: BP 118/60
[2024-09-09 13:27] VITALS: O2SAT 95
[2024-09-09 15:38] VITALS: TEMP 99.4
[2024-09-09 15:38] LABS: VENOUS BASE EXCESS -0.6 (-2.0-2.0); VENOUS O2 SATURATION 80.3 % (60.0-80.0); VENOUS PARTIAL PRESSURE CO2 45.1 mmHg (38.0-50.0); VENOUS PARTIAL PRESSURE O2 46.4 mmHg (30.0-50.0); VENOUS PH 7.362 UNITS (7.330-7.430); VENOUS STANDARD HCO3 23.6 MMOL/L; VENOUS TOTAL CO2 26.4 MMOL/L (24.0-28.0)
[2024-09-09] MEDS: IPRATROPIUM 0.5MG/ALBUTEROL 2.5MG INH SOL UD 3ML NEB ONE (15:40)
[2024-09-09 15:43] LABS: BASO % 0.2 % (0.0-1.0); EOS % 0.2 % (0.0-3.0); HEMATOCRIT 35.9 % (42.0-52.0); HEMOGLOBIN 11.2 g/dl (13.5-17.5); LYMPH # 1.8 10^3/uL (1.5-5.0); LYMPH % 14.2 % (24.0-44.0); MEAN CORPUSCULAR HEMOGLOBIN 26.7 pg (27.0-33.0); MEAN CORPUSCULAR HGB CONC 31.2 g/dl (32.0-36.5); MEAN CORPUSCULAR VOLUME 85.5 fl (80.0-96.0); MONO # 2.3 10^3/uL (0.0-0.8); MONO % 18.3 % (2.0-8.0); NEUTROPHILS # 8.3 10^3/uL (1.5-8.5); NEUTROPHILS % 65.9 % (36.0-66.0); PLATELET COUNT, AUTOMATED 142 10^3/uL (150-450); WHITE BLOOD COUNT 12.7 10^3/uL (4.0-10.0)
[2024-09-09 16:12] LABS: CK-MB VALUE MASS < 1.0 NG/ML (<3.6)
[2024-09-09 16:15] LABS: ALBUMIN 2.7 G/DL (3.2-5.2); ALKALINE PHOSPHATASE 163 U/L (40-129); ALT/SGPT 30 U/L (7.0-40); AST/SGOT 54 U/L (<34); BILIRUBIN,DIRECT 0.3 MG/DL (<0.4); BILIRUBIN,TOTAL 1.1 MG/DL (0.3-1.2); BLOOD UREA NITROGEN 25 MG/DL (9-23); CALCIUM LEVEL 8.1 MG/DL (8.3-10.6); CARBON DIOXIDE LEVEL 26 MMOL/L (20-31); CHLORIDE LEVEL 105 MMOL/L (98-107); CREATININE FOR GFR 1.38 MG/DL (0.70-1.30); GLOMERULAR FILTRATION RATE 49.5 (>35); GLUCOSE, FASTING 114 MG/DL (74-106); POTASSIUM SERUM 5.5 MMOL/L (3.5-5.1); SODIUM LEVEL 139 MMOL/L (136-145); TOTAL PROTEIN 6.6 G/DL (5.7-8.2)
[2024-09-09 16:16] LABS: THYROID STIMULATING HORMONE 1.422 uIU/ML (0.55-4.78)
[2024-09-09 16:17] LABS: THYROXINE (T4) 8.9 UG/DL (4.5-10.9)
[2024-09-09 16:19] LABS: CPK CREATINE PHOSPHOKINASE 117 U/L (46-171); MB/CK RELATIVE INDEX 0.85 (< OR =4)
[2024-09-09 17:22] LABS: KETONE, URINE AUTO RFX NEGATIVE (NEGATIVE); LEUKOCYTE ESTERASE UR AUTO RFX NEGATIVE (NEGATIVE); MUCUS, URINE RFX SMALL (NEGATIVE); NITRITE, URINE AUTO RFX NEGATIVE (NEGATIVE); RBC, URINE AUTO RFX 1 /HPF (0-3); SQUAM EPITHELIAL CELL UR AURFX 0 /HPF (0-6); WBC, URINE AUTO RFX 1 /HPF (0-3)
== END 2024-09-09 18:25 | disposition home or self-care (01) ==
LOC: M ED 13:05
DX: J98.01 Acute bronchospasm (principal); B34.9 Viral infection, unspecified; I50.22 Chronic systolic (congestive) heart failure; N18.30 Chronic kidney disease, stage 3 unspecified; Z91.048 Other nonmedicinal substance allergy status; Z79.1 Long term (current) use of non-steroidal anti-inflammatories (NSAID); Z79.51 Long term (current) use of inhaled steroids; Z79.01 Long term (current) use of anticoagulants; Z79.2 Long term (current) use of antibiotics; Z79.899 Other long term (current) drug therapy

== ENCOUNTER 2024-09-13 09:35 | Inpatient (IN) | payer BC, MEDICARE ==
[2024-09-13] VITALS (10 sets, daily range): BP systolic 124–136; BP diastolic 64–68; TEMP 98.4–98.8; O2SAT 88–100
[~2024-09-13] VITALS: Ht 170.2 cm; Wt 88.4 kg
[2024-09-13] MEDS: AZITHROMYCIN 250MG TABLET PO SCH (09:00)
[2024-09-13] MEDS: ALBUTEROL SULFATE 2.5MG/0.5ML INH CONCENTRATE NEB SOLN INH ONE (10:13)
[2024-09-13] MEDS: IPRATROPIUM 0.5MG/ALBUTEROL 2.5MG INH SOL UD 3ML NEB ONE (10:13)
[2024-09-13 10:41] LABS: ABG BASE EXCESS -0.5 (-2.0-2.0); ABG HCO3 23.6 MMOL/L (22.0-26.0); ABG O2 SATURATION 97.5 % (95.0-99.0); ABG PARTIAL PRESSURE CO2 36.6 mmHg (35.0-45.0); ABG PARTIAL PRESSURE O2 105.1 mmHg (75.0-100.0); ABG STANDARD HCO3 24.1 MMOL/L. (22.0-26.0); ABG TOTAL CO2 24.7 MMOL/L (23.0-31.0); ABG pH (ARTERIAL) 7.427 UNITS (7.350-7.450)
[2024-09-13] MEDS ORDERED: FLUTISP NARES (10:55)
[2024-09-13] MEDS ORDERED: HOME MED LIST COMPLETE! XX SCH (11:00)
[2024-09-13] MEDS: methylPREDNISolone 125MG 2ML VIAL IV ONE (11:09)
[2024-09-13] MEDS: NS (Normal Saline) 0.9% 1,000 ML IV ONE (11:09)
[2024-09-13 11:14] LABS: BASO % 0.3 % (0.0-1.0); EOS % 0.1 % (0.0-3.0); HEMATOCRIT 35.4 % (42.0-52.0); HEMOGLOBIN 11.5 g/dl (13.5-17.5); LYMPH # 0.9 10^3/uL (1.5-5.0); LYMPH % 5.9 % (24.0-44.0); MEAN CORPUSCULAR HEMOGLOBIN 27.4 pg (27.0-33.0); MEAN CORPUSCULAR HGB CONC 32.5 g/dl (32.0-36.5); MEAN CORPUSCULAR VOLUME 84.5 fl (80.0-96.0); MONO # 1.8 10^3/uL (0.0-0.8); MONO % 11.8 % (2.0-8.0); NEUTROPHILS # 11.8 10^3/uL (1.5-8.5); NEUTROPHILS % 77.9 % (36.0-66.0); PLATELET COUNT, AUTOMATED 142 10^3/uL (150-450); RED BLOOD COUNT 4.19 10^6/uL (4.30-6.10); WHITE BLOOD COUNT 15.1 10^3/uL (4.0-10.0)
[2024-09-13 11:38] LABS: ALBUMIN 2.7 G/DL (3.2-5.2); ALKALINE PHOSPHATASE 197 U/L (40-129); ALT/SGPT 31 U/L (7.0-40); AST/SGOT 46 U/L (<34); BILIRUBIN,DIRECT 0.6 MG/DL (<0.4); BILIRUBIN,TOTAL 1.4 MG/DL (0.3-1.2); BLOOD UREA NITROGEN 37 MG/DL (9-23); CALCIUM LEVEL 8.2 MG/DL (8.3-10.6); CARBON DIOXIDE LEVEL 24 MMOL/L (20-31); CHLORIDE LEVEL 104 MMOL/L (98-107); CK-MB VALUE MASS < 1.0 NG/ML (<3.6); CREATININE FOR GFR 1.41 MG/DL (0.70-1.30); GLOMERULAR FILTRATION RATE 48.2 (>35); GLUCOSE, FASTING 101 MG/DL (74-106); POTASSIUM SERUM 4.6 MMOL/L (3.5-5.1); SODIUM LEVEL 135 MMOL/L (136-145); TOTAL PROTEIN 6.6 G/DL (5.7-8.2)
[2024-09-13 11:40] LABS: THYROXINE (T4) 10.4 UG/DL (4.5-10.9)
[2024-09-13] MEDS: PIPERACILLIN/TAZOBACTAM SOD 4.5 GM in DEXTROSE 5% (D5W) ADV/MINI-BAG 50 ML IV ONE (11:42)
[2024-09-13] MEDS: LIDOCAINE 2% 5ML JELLY UROJET TOP ONE (11:43)
[2024-09-13 11:49] LABS: CPK CREATINE PHOSPHOKINASE 39 U/L (46-171); MB/CK RELATIVE INDEX 2.56 (< OR =4)
[2024-09-13 12:23] LABS: CK-MB VALUE MASS < 1.0 NG/ML (<3.6)
[2024-09-13 12:24] LABS: KETONE, URINE AUTO RFX NEGATIVE (NEGATIVE); LEUKOCYTE ESTERASE UR AUTO RFX NEGATIVE (NEGATIVE); NITRITE, URINE AUTO RFX NEGATIVE (NEGATIVE); RBC, URINE AUTO RFX 4 /HPF (0-3); SQUAM EPITHELIAL CELL UR AURFX 0 /HPF (0-6); WBC, URINE AUTO RFX 1 /HPF (0-3)
[2024-09-13 12:26] LABS: CPK CREATINE PHOSPHOKINASE 50 U/L (46-171)
[2024-09-13] MEDS ORDERED: ISOVUE-370 76% 100ML VIAL As Ordered ONE (12:50)
[2024-09-13] MEDS ORDERED: IPRATROPIUM 0.5MG/ALBUTEROL 2.5MG INH SOL UD 3ML INH PRN (14:00)
[2024-09-13 15:11] LABS: C REACTIVE PROTEIN QUANTITATIV 22.54 MG/DL (<1.0); PROCALCITONIN >50.00 ng/ml
[2024-09-13] MEDS: GABAPENTIN 300 MG CAP PO SCH (16:12)
[2024-09-13] MEDS: NS (Normal Saline) 0.9% 1,000 ML IV SCH (16:14)
[2024-09-13] MEDS: PIPERACILLIN/TAZOBACTAM SOD 4.5 GM in DEXTROSE 5% (D5W) ADV/MINI-BAG 50 ML IV SCH (17:19)
[2024-09-13] MEDS: TAMSULOSIN 0.4 MG CAP PO SCH (20:12)
[2024-09-13] MEDS: APIXABAN 5 MG TAB (ELIQUIS) PO SCH (20:13)
[2024-09-13] MEDS: PANTOPRAZOLE 40MG TAB (PROTONIX) PO SCH (20:13)
[2024-09-13] MEDS: guaiFENesin ER TABLET 600 MG TAB PO SCH (20:13)
[2024-09-13] MEDS: rOPINIRole 0.25 MG TAB(REQUIP) PO SCH (20:13)
[2024-09-14] VITALS (17 sets, daily range): BP systolic 120–141; BP diastolic 64–81; TEMP 97.1–98.5; O2SAT 92–98
[2024-09-14 05:50] LABS: HEMATOCRIT 31.8 % (42.0-52.0); HEMOGLOBIN 10.1 g/dl (13.5-17.5); MEAN CORPUSCULAR HEMOGLOBIN 26.6 pg (27.0-33.0); MEAN CORPUSCULAR HGB CONC 31.8 g/dl (32.0-36.5); MEAN CORPUSCULAR VOLUME 83.7 fl (80.0-96.0); PLATELET COUNT, AUTOMATED 132 10^3/uL (150-450); WHITE BLOOD COUNT 11.2 10^3/uL (4.0-10.0)
[2024-09-14 06:25] LABS: ALBUMIN 2.2 G/DL (3.2-5.2); ALKALINE PHOSPHATASE 159 U/L (40-129); ALT/SGPT 25 U/L (7.0-40); AST/SGOT 35 U/L (<34); BILIRUBIN,TOTAL 0.9 MG/DL (0.3-1.2); BLOOD UREA NITROGEN 36 MG/DL (9-23); C REACTIVE PROTEIN QUANTITATIV 22.68 MG/DL (<1.0); CALCIUM LEVEL 7.8 MG/DL (8.3-10.6); CARBON DIOXIDE LEVEL 24 MMOL/L (20-31); CHLORIDE LEVEL 108 MMOL/L (98-107); CREATININE FOR GFR 1.21 MG/DL (0.70-1.30); GLUCOSE, FASTING 120 MG/DL (74-106); POTASSIUM SERUM 4.7 MMOL/L (3.5-5.1); PROCALCITONIN >50.00 ng/ml; SODIUM LEVEL 141 MMOL/L (136-145); TOTAL PROTEIN 5.9 G/DL (5.7-8.2)
[2024-09-14 06:30] LABS: LYMPHOCYTES 10 % (16-44); MONOCYTES 9 % (0-5); NEUTROPHILS 79 % (28-66)
[2024-09-14 06:32] LABS: PLATELET ESTIMATE DECREASED (NORMAL)
[2024-09-14] MEDS: IPRATROPIUM 0.5MG/ALBUTEROL 2.5MG INH SOL UD 3ML INH SCH (09:14)
[2024-09-14] MEDS: SANTYL OINT 30GM TOP SCH (09:32)
[2024-09-15] VITALS (23 sets, daily range): BP systolic 138–156; BP diastolic 64–72; TEMP 97.3–98.7; O2SAT 90–96
[2024-09-15 06:17] LABS: HEMATOCRIT 32.4 % (42.0-52.0); HEMOGLOBIN 10.1 g/dl (13.5-17.5); MEAN CORPUSCULAR HEMOGLOBIN 26.1 pg (27.0-33.0); MEAN CORPUSCULAR HGB CONC 31.2 g/dl (32.0-36.5); MEAN CORPUSCULAR VOLUME 83.7 fl (80.0-96.0); PLATELET COUNT, AUTOMATED 143 10^3/uL (150-450); RED BLOOD COUNT 3.87 10^6/uL (4.30-6.10); WHITE BLOOD COUNT 12.5 10^3/uL (4.0-10.0)
[2024-09-15 06:44] LABS: ALBUMIN 2.2 G/DL (3.2-5.2); BILIRUBIN,TOTAL 0.9 MG/DL (0.3-1.2); CREATININE FOR GFR 1.24 MG/DL (0.70-1.30); GLOMERULAR FILTRATION RATE 56.3 (>35); POTASSIUM SERUM 4.1 MMOL/L (3.5-5.1); TOTAL PROTEIN 5.9 G/DL (5.7-8.2)
[2024-09-15] MEDS ORDERED: PILL CUTTER 1 EACH XX PRN (07:00)
[2024-09-15 07:26] LABS: C REACTIVE PROTEIN QUANTITATIV 15.81 MG/DL (<1.0)
[2024-09-15 07:36] LABS: ATYPICAL LYMPH 1 % (0-5); LYMPHOCYTES 4 % (16-44); METAMYELOCYTES 1 % (0-0); MONOCYTES 11 % (0-5); MYELOCYTES 1 % (0-0); NEUTROPHILS 81 % (28-66)
[2024-09-15 07:37] LABS: ANISOCYTOSIS 1+; PLATELET ESTIMATE NORMAL (NORMAL)
[2024-09-15 07:39] LABS: OVALOCYTES 1+
[2024-09-15] MEDS ORDERED: LEVALBUTEROL 1.25 MG 0.5ML CONCENTRATE NEB INH PRN (10:10)
[2024-09-15] MEDS: risperiDONE 0.5 MG TAB PO SCH (21:54)
[2024-09-16] VITALS (22 sets, daily range): BP systolic 136–154; BP diastolic 68–79; TEMP 97.7–98.3; O2SAT 84–96
[2024-09-16 04:20] LABS: BASO # 0.1 10^3/uL (0.0-0.2); BASO % 0.5 % (0.0-1.0); EOS % 0.4 % (0.0-3.0); HEMATOCRIT 32.8 % (42.0-52.0); HEMOGLOBIN 10.5 g/dl (13.5-17.5); LYMPH # 1.3 10^3/uL (1.5-5.0); LYMPH % 11.4 % (24.0-44.0); MEAN CORPUSCULAR HEMOGLOBIN 26.9 pg (27.0-33.0); MEAN CORPUSCULAR VOLUME 84.1 fl (80.0-96.0); MONO # 1.8 10^3/uL (0.0-0.8); MONO % 16.1 % (2.0-8.0); NEUTROPHILS # 6.7 10^3/uL (1.5-8.5); NEUTROPHILS % 60.3 % (36.0-66.0); PLATELET COUNT, AUTOMATED 145 10^3/uL (150-450); WHITE BLOOD COUNT 11.1 10^3/uL (4.0-10.0)
[2024-09-16 04:47] LABS: ALBUMIN 2.2 G/DL (3.2-5.2); CREATININE FOR GFR 1.16 MG/DL (0.70-1.30); POTASSIUM SERUM 4.4 MMOL/L (3.5-5.1); TOTAL PROTEIN 5.8 G/DL (5.7-8.2)
[2024-09-16 05:12] LABS: C REACTIVE PROTEIN QUANTITATIV 17.34 MG/DL (<1.0)
[2024-09-16] MEDS: PIPERACILLIN/TAZOBACTAM SOD 4.5 GM in DEXTROSE 5% (D5W) ADV/MINI-BAG 50 ML IV SCH (11:27)
[2024-09-16] MEDS: GABAPENTIN 300 MG CAP PO SCH (16:27)
[2024-09-16] MEDS: AUGMENTIN 875 MG TAB PO SCH (17:57)
[2024-09-16] MEDS: FUROSEMIDE 20MG/2ML VIAL IV ONE (17:57)
[2024-09-17] VITALS (13 sets, daily range): BP systolic 117–143; BP diastolic 60–79; TEMP 97.7–98.5; O2SAT 92–96
[2024-09-17] MEDS: RAMELTEON 8 MG TAB (ROZEREM) PO PRN (03:28)
[2024-09-17 04:53] LABS: ALBUMIN 2.2 G/DL (3.2-5.2); BILIRUBIN,TOTAL 1.1 MG/DL (0.3-1.2); CALCIUM LEVEL 7.7 MG/DL (8.3-10.6); CREATININE FOR GFR 1.04 MG/DL (0.70-1.30); GLOMERULAR FILTRATION RATE 69.5 (>35); POTASSIUM SERUM 4.1 MMOL/L (3.5-5.1)
[2024-09-17 05:15] LABS: BASO % 0.4 % (0.0-1.0); EOS # 0.1 10^3/uL (0.0-0.5); EOS % 0.7 % (0.0-3.0); HEMATOCRIT 33.1 % (42.0-52.0); HEMOGLOBIN 10.6 g/dl (13.5-17.5); LYMPH # 1.2 10^3/uL (1.5-5.0); LYMPH % 12.5 % (24.0-44.0); MEAN CORPUSCULAR HEMOGLOBIN 26.6 pg (27.0-33.0); MEAN CORPUSCULAR VOLUME 83.2 fl (80.0-96.0); MONO # 1.4 10^3/uL (0.0-0.8); MONO % 14.2 % (2.0-8.0); NEUTROPHILS # 5.6 10^3/uL (1.5-8.5); NEUTROPHILS % 58.3 % (36.0-66.0); PLATELET COUNT, AUTOMATED 148 10^3/uL (150-450); RED BLOOD COUNT 3.98 10^6/uL (4.30-6.10); WHITE BLOOD COUNT 9.6 10^3/uL (4.0-10.0)
[2024-09-17 05:27] LABS: C REACTIVE PROTEIN QUANTITATIV 16.73 MG/DL (<1.0)
[2024-09-17 07:26] LABS: PROCALCITONIN 27.49 ng/ml
[2024-09-17] MEDS ORDERED: LEVA1.25 INH (11:20)
[2024-09-17] MEDS ORDERED: AMOX875T2 PO (11:20)
== END 2024-09-17 12:50 | disposition home health service (06) | DRG 720 ==
LOC: M ED 09:35 → M ED INP 12:56 → M PCU 14:45
PROVIDERS: ADMIT Internal Medicine; ATTEND Internal Medicine
DX: A41.9 Sepsis, unspecified organism (principal); J96.01 Acute respiratory failure with hypoxia; L89.152 Pressure ulcer of sacral region, stage 2; J18.9 Pneumonia, unspecified organism; I50.32 Chronic diastolic (congestive) heart failure; N18.31 Chronic kidney disease, stage 3a; R13.10 Dysphagia, unspecified; R53.1 Weakness; K21.9 Gastro-esophageal reflux disease without esophagitis; M79.2 Neuralgia and neuritis, unspecified; J92.0 Pleural plaque with presence of asbestos; G25.81 Restless legs syndrome; N40.0 Benign prostatic hyperplasia without lower urinary tract symptoms; Z85.828 Personal history of other malignant neoplasm of skin; Z96.643 Presence of artificial hip joint, bilateral; Z86.711 Personal history of pulmonary embolism; Z79.01 Long term (current) use of anticoagulants; Z79.899 Other long term (current) drug therapy; Z91.048 Other nonmedicinal substance allergy status; Z85.79 Personal history of other malignant neoplasms of lymphoid, hematopoietic and related tissues

== ENCOUNTER 2024-12-26 16:26 | Emergency (ER) | payer BC, MEDICARE ==
[~2024-12-26 16:26] MED LIST changes: +FLUTISP NARES; +LEVA1.25 INH
[2024-12-26] MEDS ORDERED: FURO20TA2 PO (16:39)
[2024-12-26 17:23] LABS: BASO # 0.0 10^3/uL (0.0-0.2); BASO % 0.3 % (0.0-1.0); EOS # 0.1 10^3/uL (0.0-0.5); EOS % 2.1 % (0.0-3.0); LYMPH # 1.7 10^3/uL (1.5-5.0); LYMPH % 27.2 % (24.0-44.0); MONO # 1.0 10^3/uL (0.0-0.8); MONO % 16.9 % (2.0-8.0); NEUTROPHILS # 3.2 10^3/uL (1.5-8.5); NEUTROPHILS % 52.4 % (36.0-66.0); PLATELET COUNT, AUTOMATED 107 10^3/uL (150-450)
[2024-12-26 17:38] LABS: CALCIUM LEVEL 8.5 MG/DL (8.3-10.6); CARBON DIOXIDE LEVEL 21 MMOL/L (20-31); CHLORIDE LEVEL 107 MMOL/L (98-107); CREATININE FOR GFR 1.52 MG/DL (0.70-1.30); GLOMERULAR FILTRATION RATE 43.8 (>35); POTASSIUM SERUM 4.5 MMOL/L (3.5-5.1); SODIUM LEVEL 141 MMOL/L (136-145)
[2024-12-26] MEDS ORDERED: ROPI0.5T33 PO (17:40)
[2024-12-26 17:43] LABS: ETHYL ALCOHOL (ETHANOL) < 0.003 % (0.000-0.010)
[2024-12-26 17:45] LABS: SALICYLATE LEVEL < 3.0 MG/DL (<30)
[2024-12-26] MEDS ORDERED: HYDR-3713 PO (17:59)
[2024-12-26] MEDS ORDERED: HOME MED LIST COMPLETE! XX SCH (18:00)
[2024-12-26 18:02] LABS: INR 1.6
[2024-12-26 18:51] LABS: KETONE, URINE AUTO RFX NEGATIVE (NEGATIVE); LEUKOCYTE ESTERASE UR AUTO RFX NEGATIVE (NEGATIVE); NITRITE, URINE AUTO RFX NEGATIVE (NEGATIVE); RBC, URINE AUTO RFX 0 /HPF (0-3); SQUAM EPITHELIAL CELL UR AURFX 0 /HPF (0-6); WBC, URINE AUTO RFX 0 /HPF (0-3)
[2024-12-26] MEDS: NS 500 ML IV ONE (19:15)
[2024-12-26 19:21] LABS: AMPHETAMINES LEVEL URINE NEGATIVE (NEGATIVE); BARBITURATES URINE NEGATIVE (NEGATIVE); BENZODIAZEPINES URINE NEGATIVE (NEGATIVE); COCAINE METABOLITE URINE NEGATIVE (NEGATIVE); METHADONE URINE NEGATIVE (NEGATIVE)
[2024-12-26 19:22] LABS: CANNABINOIDS URINE NEGATIVE (NEGATIVE); OPIATES URINE NEGATIVE (NEGATIVE); PHENCYCLIDINE URINE NEGATIVE (NEGATIVE)
[2024-12-26 19:31] VITALS: TEMP 98.2
[2024-12-26 20:00] VITALS: BP 144/75; O2SAT 95
== END 2024-12-26 21:21 | disposition home or self-care (01) ==
LOC: M ED 16:26
DX: R53.1 Weakness (principal); R91.8 Other nonspecific abnormal finding of lung field; I50.22 Chronic systolic (congestive) heart failure; K21.9 Gastro-esophageal reflux disease without esophagitis; Z91.048 Other nonmedicinal substance allergy status; Z79.1 Long term (current) use of non-steroidal anti-inflammatories (NSAID); Z79.01 Long term (current) use of anticoagulants; Z79.899 Other long term (current) drug therapy

== ENCOUNTER 2025-01-30 16:11 | Inpatient (IN) | payer MEDICARE, BC, OTHER ==
[~2025-01-30] VITALS: Ht 167.6 cm; Wt 88.7 kg
[~2025-01-30 16:11] MED LIST changes: +FURO20TA2 PO; +HYDR-3713 PO; +ROPI0.5T33 PO
[2025-01-30] MEDS ORDERED: CLON-412 PO (17:52)
[2025-01-30] MEDS ORDERED: HYDR-3364 PO (17:52)
[2025-01-30] MEDS ORDERED: THIA100T7 PO (17:52)
[2025-01-30] MEDS ORDERED: CONS10SO3 PO (17:52)
[2025-01-30 17:55] LABS: VENOUS BASE EXCESS -1.8 (-2.0-2.0); VENOUS HCO3 22.2 MMOL/L (23.0-27.0); VENOUS O2 SATURATION 86.8 % (60.0-80.0); VENOUS PARTIAL PRESSURE CO2 35.4 mmHg (38.0-50.0); VENOUS PARTIAL PRESSURE O2 52.6 mmHg (30.0-50.0); VENOUS PH 7.415 UNITS (7.330-7.430); VENOUS STANDARD HCO3 22.7 MMOL/L; VENOUS TOTAL CO2 23.3 MMOL/L (24.0-28.0)
[2025-01-30] MEDS ORDERED: HOME MED LIST COMPLETE! XX SCH (17:55)
[2025-01-30 18:12] LABS: BASO # 0.0 10^3/uL (0.0-0.2); BASO % 0.3 % (0.0-1.0); EOS # 0.1 10^3/uL (0.0-0.5); EOS % 1.9 % (0.0-3.0); LYMPH # 1.4 10^3/uL (1.5-5.0); LYMPH % 23.0 % (24.0-44.0); MONO # 1.0 10^3/uL (0.0-0.8); MONO % 15.8 % (2.0-8.0); NEUTROPHILS # 3.6 10^3/uL (1.5-8.5); NEUTROPHILS % 58.2 % (36.0-66.0)
[2025-01-30 18:21] LABS: OSMOLALITY SERUM 295 MOSM/KG (280-301)
[2025-01-30 18:26] LABS: ETHYL ALCOHOL (ETHANOL) < 0.003 % (0.000-0.010)
[2025-01-30 18:27] LABS: SALICYLATE LEVEL < 3.0 MG/DL (<30)
[2025-01-30 18:28] LABS: ALT/SGPT 24 U/L (7.0-40); AST/SGOT 41 U/L (<34); CALCIUM LEVEL 8.7 MG/DL (8.3-10.6); CARBON DIOXIDE LEVEL 24 MMOL/L (20-31); CHLORIDE LEVEL 106 MMOL/L (98-107); CREATININE FOR GFR 1.46 MG/DL (0.70-1.30); GLOMERULAR FILTRATION RATE 46.0 (>35); POTASSIUM SERUM 4.0 MMOL/L (3.5-5.1); SODIUM LEVEL 136 MMOL/L (136-145)
[2025-01-30 18:37] LABS: PLATELET COUNT, AUTOMATED 93 10^3/uL (150-450)
[2025-01-30 19:06] LABS: KETONE, URINE AUTO RFX NEGATIVE (NEGATIVE); LEUKOCYTE ESTERASE UR AUTO RFX NEGATIVE (NEGATIVE); NITRITE, URINE AUTO RFX NEGATIVE (NEGATIVE); RBC, URINE AUTO RFX 9 /HPF (0-3); SQUAM EPITHELIAL CELL UR AURFX 1 /HPF (0-6); WBC, URINE AUTO RFX 0 /HPF (0-3)
[2025-01-30 19:29] LABS: AMPHETAMINES LEVEL URINE NEGATIVE (NEGATIVE); BARBITURATES URINE NEGATIVE (NEGATIVE); BENZODIAZEPINES URINE NEGATIVE (NEGATIVE); CANNABINOIDS URINE NEGATIVE (NEGATIVE); COCAINE METABOLITE URINE NEGATIVE (NEGATIVE); METHADONE URINE NEGATIVE (NEGATIVE); OPIATES URINE NEGATIVE (NEGATIVE); PHENCYCLIDINE URINE NEGATIVE (NEGATIVE)
[2025-01-30] MEDS ORDERED: PILL CUTTER 1 EACH XX PRN (22:05)
[2025-01-30] MEDS: LACTULOSE 20 GM/30 ML SYRUP UDC PO SCH (22:31)
[2025-01-30] MEDS: PANTOPRAZOLE 40MG TAB PO SCH (22:32)
[2025-01-30] MEDS: rOPINIRole 0.25 MG TAB PO SCH (23:52)
[2025-01-31 00:57] LABS: INR 1.68
[2025-01-31] MEDS: NS (Normal Saline) 0.9% 1,000 ML IV SCH (01:21)
[2025-01-31] MEDS ORDERED: PIPERACILLIN/TAZOBACTAM SOD 3.375 GM in DEXTROSE 5% (D5W) ADV/MINI-BAG 50 ML IV SCH (02:40)
[2025-01-31] MEDS: PIPERACILLIN/TAZOBACTAM SOD 2.25 GM in DEXTROSE 5% (D5W) ADV/MINI-BAG 50 ML IV SCH (06:35)
[2025-01-31 09:30] LABS: PLATELET COUNT, AUTOMATED 85 10^3/uL (150-450)
[2025-01-31 10:03] LABS: ALT/SGPT 21.0 U/L (7.0-40); AST/SGOT 35.0 U/L (<34); CALCIUM LEVEL 8.1 MG/DL (8.3-10.6); CARBON DIOXIDE LEVEL 24.0 MMOL/L (20-31); CHLORIDE LEVEL 108.0 MMOL/L (98-107); CREATININE FOR GFR 1.25 MG/DL (0.70-1.30); GLOMERULAR FILTRATION RATE 55.4 (>35); POTASSIUM SERUM 4.1 MMOL/L (3.5-5.1); SODIUM LEVEL 141.0 MMOL/L (136-145)
[2025-01-31 10:07] LABS: ALT/SGPT 20.0 U/L (7.0-40); AST/SGOT 35.0 U/L (<34); CALCIUM LEVEL 8.1 MG/DL (8.3-10.6); CARBON DIOXIDE LEVEL 25.0 MMOL/L (20-31); CHLORIDE LEVEL 108.0 MMOL/L (98-107); CREATININE FOR GFR 1.25 MG/DL (0.70-1.30); GLOMERULAR FILTRATION RATE 55.4 (>35); POTASSIUM SERUM 4.0 MMOL/L (3.5-5.1); SODIUM LEVEL 138.0 MMOL/L (136-145)
[2025-01-31] MEDS: TAMSULOSIN 0.4 MG CAP PO SCH (10:07)
[2025-01-31] MEDS: THIAMINE 100 MG TAB PO SCH (10:11)
[2025-01-31] MEDS: APIXABAN 5 MG TAB PO SCH (10:11)
[2025-01-31 10:38] LABS: HEPATITIS C VIRUS ABY INDEX 0.02 INDEX (<0.8)
[2025-01-31 14:35] VITALS: BP 122/63; TEMP 97; O2SAT 95
[2025-01-31] MEDS: LACTULOSE 20 GM/30 ML SYRUP UDC PO SCH (17:45)
[2025-01-31 20:05] VITALS: BP 140/77; TEMP 97.3; O2SAT 98
[2025-01-31] MEDS: risperiDONE 0.5 MG TAB PO SCH (21:21)
[2025-02-01 05:31] VITALS: BP 123/73; TEMP 97.2; O2SAT 98
[2025-02-01 06:54] LABS: PLATELET COUNT, AUTOMATED 76 10^3/uL (150-450)
[2025-02-01 07:24] LABS: ALT/SGPT 19.0 U/L (7.0-40); AST/SGOT 34.0 U/L (<34); CALCIUM LEVEL 7.7 MG/DL (8.3-10.6); CARBON DIOXIDE LEVEL 24.0 MMOL/L (20-31); CHLORIDE LEVEL 110.0 MMOL/L (98-107); CREATININE FOR GFR 1.18 MG/DL (0.70-1.30); GLOMERULAR FILTRATION RATE 59.4 (>35); POTASSIUM SERUM 4.3 MMOL/L (3.5-5.1); SODIUM LEVEL 142.0 MMOL/L (136-145)
[2025-02-01] MEDS: BISACODYL 10 MG SUPP PR SCH (08:57)
[2025-02-01] MEDS: DOCUSATE SODIUM 100 MG CAPSULE PO SCH (08:57)
[2025-02-01] MEDS ORDERED: QUEtiapine FUMARATE 12.5 MG HALF-TAB PO SCH (09:00)
[2025-02-01 14:20] VITALS: BP 118/68; TEMP 97; O2SAT 97
[2025-02-01 21:12] VITALS: BP 138/76; TEMP 97.5; O2SAT 97
[2025-02-01] MEDS: SENNA 8.6 MG TAB PO SCH (21:35)
[2025-02-02 06:00] VITALS: BP 110/62; TEMP 97.5; O2SAT 97
[2025-02-02 06:43] LABS: PLATELET COUNT, AUTOMATED 77 10^3/uL (150-450)
[2025-02-02 07:13] LABS: ALT/SGPT 19.0 U/L (7.0-40); AST/SGOT 33.0 U/L (<34); CALCIUM LEVEL 7.5 MG/DL (8.3-10.6); CARBON DIOXIDE LEVEL 22.0 MMOL/L (20-31); CHLORIDE LEVEL 111.0 MMOL/L (98-107); CREATININE FOR GFR 1.25 MG/DL (0.70-1.30); GLOMERULAR FILTRATION RATE 55.4 (>35); POTASSIUM SERUM 3.9 MMOL/L (3.5-5.1); SODIUM LEVEL 142.0 MMOL/L (136-145)
[2025-02-02 14:30] VITALS: BP 113/60; TEMP 97.3; O2SAT 97
[2025-02-02 21:00] VITALS: BP 138/72; TEMP 97.5; O2SAT 96
[2025-02-03 06:00] VITALS: BP 117/62; TEMP 97.3; O2SAT 97
[2025-02-03 07:23] LABS: PLATELET COUNT, AUTOMATED 79 10^3/uL (150-450)
[2025-02-03 07:36] LABS: ALT/SGPT 15.0 U/L (7.0-40); AST/SGOT 28.0 U/L (<34); CALCIUM LEVEL 7.4 MG/DL (8.3-10.6); CARBON DIOXIDE LEVEL 20.0 MMOL/L (20-31); CHLORIDE LEVEL 112.0 MMOL/L (98-107); CREATININE FOR GFR 1.16 MG/DL (0.70-1.30); GLOMERULAR FILTRATION RATE 60.6 (>35); POTASSIUM SERUM 3.6 MMOL/L (3.5-5.1); SODIUM LEVEL 142.0 MMOL/L (136-145)
[2025-02-03 14:00] VITALS: BP 119/64; TEMP 97.2; O2SAT 95
[2025-02-03 17:32] LABS: ANA PATTERN 2 Nuclear, Nucleolar; ANA TITER 2 1:80 titer (NEGATIVE)
[2025-02-03] MEDS: RAMELTEON 8 MG TAB PO PRN (21:21)
[2025-02-03 22:00] VITALS: BP 125/83; TEMP 97.3; O2SAT 98
[2025-02-04 06:00] VITALS: BP 110/62; TEMP 97; O2SAT 95
[2025-02-04 06:38] LABS: PLATELET COUNT, AUTOMATED 76 10^3/uL (150-450)
[2025-02-04 07:05] LABS: ALT/SGPT 16.0 U/L (7.0-40); AST/SGOT 26.0 U/L (<34); CALCIUM LEVEL 7.6 MG/DL (8.3-10.6); CARBON DIOXIDE LEVEL 20.0 MMOL/L (20-31); CHLORIDE LEVEL 113.0 MMOL/L (98-107); CREATININE FOR GFR 1.12 MG/DL (0.70-1.30); GLOMERULAR FILTRATION RATE 63.2 (>35); POTASSIUM SERUM 3.7 MMOL/L (3.5-5.1); SODIUM LEVEL 142.0 MMOL/L (136-145)
[2025-02-04 09:00] VITALS: BP 112/62
[2025-02-04] MEDS ORDERED: BISA10SU PR (09:59)
[2025-02-04] MEDS ORDERED: SENN18TA PO (09:59)
[2025-02-05 14:32] LABS: ANTI-SMOOTH MUSCLE ANTIBODY 26.0 U (<20)
== END 2025-02-04 12:45 | disposition home health service (06) | DRG 71 ==
LOC: M ED 16:11 → M ED INP 16:12 → OBSVTOIN 01-31 13:02 → M MS5PR 01-31 14:40
PROVIDERS: ADMIT Student in an Organized Health Care Education/Training Program; ATTEND Internal Medicine
DX: G93.41 Metabolic encephalopathy (principal); I50.32 Chronic diastolic (congestive) heart failure; N17.9 Acute kidney failure, unspecified; E72.20 Disorder of urea cycle metabolism, unspecified; I13.0 Hypertensive heart and chronic kidney disease with heart failure and stage 1 through stage 4 chronic kidney disease, or unspecified chronic kidney disease; N18.31 Chronic kidney disease, stage 3a; N40.0 Benign prostatic hyperplasia without lower urinary tract symptoms; K21.9 Gastro-esophageal reflux disease without esophagitis; G25.81 Restless legs syndrome; G89.29 Other chronic pain; K80.20 Calculus of gallbladder without cholecystitis without obstruction; K74.60 Unspecified cirrhosis of liver; G31.84 Mild cognitive impairment of uncertain or unknown etiology; D64.9 Anemia, unspecified; G47.00 Insomnia, unspecified; K59.00 Constipation, unspecified; M79.2 Neuralgia and neuritis, unspecified; Z86.711 Personal history of pulmonary embolism; Z79.01 Long term (current) use of anticoagulants; Z79.899 Other long term (current) drug therapy; Z91.048 Other nonmedicinal substance allergy status; Z85.828 Personal history of other malignant neoplasm of skin; Z85.79 Personal history of other malignant neoplasms of lymphoid, hematopoietic and related tissues; Z96.643 Presence of artificial hip joint, bilateral; Z92.21 Personal history of antineoplastic chemotherapy

== ENCOUNTER → 2025-02-19 | Outpatient (CLI) | payer MEDICARE, BC, OTHER ==
[~2025-02-19] MED LIST changes: +BISA10SU PR; +CLON-412 PO; +CONS10SO3 PO; +HYDR-3364 PO; +KETO120S5 TOP; +OXYC-517 PO; +SENN-188 PO; +SENN18TA PO; +SPIR-10 PO; +THIA100T7 PO
[2025-02-19 12:55] LABS: BASO # 0.0 10^3/uL (0.0-0.2); BASO % 0.3 % (0.0-1.0); EOS # 0.1 10^3/uL (0.0-0.5); EOS % 1.4 % (0.0-3.0); LYMPH # 1.4 10^3/uL (1.5-5.0); LYMPH % 24.7 % (24.0-44.0); MONO # 1.0 10^3/uL (0.0-0.8); MONO % 17.7 % (2.0-8.0); NEUTROPHILS # 3.2 10^3/uL (1.5-8.5); NEUTROPHILS % 55.2 % (36.0-66.0); PLATELET COUNT, AUTOMATED 109 10^3/uL (150-450)
[2025-02-19 13:22] LABS: ALT/SGPT 21.0 U/L (7.0-40); AST/SGOT 37.0 U/L (<34); CALCIUM LEVEL 8.0 MG/DL (8.3-10.6); CARBON DIOXIDE LEVEL 26.0 MMOL/L (20-31); CHLORIDE LEVEL 104.0 MMOL/L (98-107); CHOLESTEROL LEVEL 134.0 MG/DL (<200); CHOLESTEROL RISK RATIO 3.64 (<5); CREATININE FOR GFR 1.24 MG/DL (0.70-1.30); GLOMERULAR FILTRATION RATE 55.9 (>35); LDL CHOLESTEROL 78.0 MG/DL (<100); NON-HDL-C 97.2 MG/DL; POTASSIUM SERUM 3.1 MMOL/L (3.5-5.1); SODIUM LEVEL 143.0 MMOL/L (136-145); TRIGLYCERIDES LEVEL 96.0 MG/DL (<150)
[2025-02-19 13:40] LABS: CPK CREATINE PHOSPHOKINASE 103.0 U/L (46-171)
[2025-02-25 20:00] VITALS: BP 142/59; TEMP 97.2; O2SAT 97
== END ==
LOC: M LAB 12:12 → M PM&R 02-25 17:00
PROVIDERS: ATTEND Physical Medicine & Rehabilitation
DX: K76.82 Hepatic encephalopathy (principal); Z79.899 Other long term (current) drug therapy

== ENCOUNTER 2025-02-22 14:30 | Inpatient (IN) | payer MEDICARE, BC, OTHER ==
[~2025-02-22] VITALS: Ht 175.3 cm; Wt 93.8 kg
[~2025-02-22 14:30] MED LIST changes: -KETO120S5 TOP; -OXYC-517 PO; -SENN-188 PO; -SPIR-10 PO
[2025-02-22] MEDS ORDERED: OXYC-517 PO (14:57)
[2025-02-22] MEDS ORDERED: ACETAMINOPHEN 325 MG TAB PO PRN (21:10)
[2025-02-22] MEDS ORDERED: SENN-188 PO (22:22)
[2025-02-22] MEDS ORDERED: KETO120S5 TOP (22:26)
[2025-02-22] MEDS ORDERED: HOME MED LIST COMPLETE! XX SCH (22:30)
[2025-02-22 22:59] LABS: ALT/SGPT 21.0 U/L (7.0-40); AST/SGOT 39.0 U/L (<34); CALCIUM LEVEL 7.4 MG/DL (8.3-10.6); CARBON DIOXIDE LEVEL 29.0 MMOL/L (20-31); CHLORIDE LEVEL 105.0 MMOL/L (98-107); CPK CREATINE PHOSPHOKINASE 238.0 U/L (46-171); CREATININE FOR GFR 1.68 MG/DL (0.70-1.30); GLOMERULAR FILTRATION RATE 38.8 (>35); POTASSIUM SERUM 3.0 MMOL/L (3.5-5.1); SODIUM LEVEL 144.0 MMOL/L (136-145)
[2025-02-22 23:32] LABS: BASO # 0.0 10^3/uL (0.0-0.2); BASO % 0.1 % (0.0-1.0); EOS # 0.0 10^3/uL (0.0-0.5); EOS % 0.1 % (0.0-3.0); INR 2.74; LYMPH # 1.4 10^3/uL (1.5-5.0); LYMPH % 17.8 % (24.0-44.0); MONO # 1.5 10^3/uL (0.0-0.8); MONO % 19.3 % (2.0-8.0); NEUTROPHILS # 4.9 10^3/uL (1.5-8.5); NEUTROPHILS % 61.8 % (36.0-66.0)
[2025-02-23] VITALS (11 sets, daily range): BP systolic 104–123; BP diastolic 49–71; TEMP 97.2–98.4; O2SAT 93–98
[2025-02-23 00:01] LABS: PLATELET COUNT, AUTOMATED 99 10^3/uL (150-450)
[2025-02-23] MEDS: NS 500 ML IV ONE (02:41)
[2025-02-23] MEDS: NS (Normal Saline) 0.9% 600 ML IV SCH (03:13)
[2025-02-23] MEDS: POTASSIUM CHLORIDE 10MEQ SR TABLET PO SCH (05:07)
[2025-02-23 07:30] LABS: PLATELET COUNT, AUTOMATED 87 10^3/uL (150-450)
[2025-02-23] MEDS: PANTOPRAZOLE 40MG TAB PO SCH (08:16)
[2025-02-23] MEDS: DOCUSATE SODIUM 100 MG CAPSULE PO SCH (08:16)
[2025-02-23] MEDS: THIAMINE 100 MG TAB PO SCH (08:16)
[2025-02-23] MEDS: LACTULOSE 20 GM/30 ML SYRUP UDC PO SCH (08:16)
[2025-02-23] MEDS: rOPINIRole 0.25 MG TAB PO SCH (08:16)
[2025-02-23 08:18] LABS: CALCIUM LEVEL 7.3 MG/DL (8.3-10.6); CARBON DIOXIDE LEVEL 28.0 MMOL/L (20-31); CHLORIDE LEVEL 104.0 MMOL/L (98-107); CREATININE FOR GFR 1.67 MG/DL (0.70-1.30); GLOMERULAR FILTRATION RATE 39.1 (>35); SODIUM LEVEL 143.0 MMOL/L (136-145)
[2025-02-23 08:20] LABS: BASO # 0.0 10^3/uL (0.0-0.2); BASO % 0.1 % (0.0-1.0); EOS # 0.0 10^3/uL (0.0-0.5); EOS % 0.6 % (0.0-3.0); LYMPH # 1.5 10^3/uL (1.5-5.0); LYMPH % 20.4 % (24.0-44.0); MONO # 1.5 10^3/uL (0.0-0.8); MONO % 20.5 % (2.0-8.0); NEUTROPHILS # 4.2 10^3/uL (1.5-8.5); NEUTROPHILS % 57.3 % (36.0-66.0); PLATELET COUNT, AUTOMATED 89 10^3/uL (150-450)
[2025-02-23 08:22] LABS: POTASSIUM SERUM 2.8 MMOL/L (3.5-5.1)
[2025-02-23] MEDS ORDERED: LACTULOSE 20 GM/30 ML SYRUP UDC PO SCH (09:00)
[2025-02-23] MEDS: KCL 10MEQ/100ML SWI (KRUN) 10 MEQ in IV 1 EA IV SCH (11:09)
[2025-02-23 14:00] LABS: KETONE, URINE AUTO RFX NEGATIVE (NEGATIVE); LEUKOCYTE ESTERASE UR AUTO RFX NEGATIVE (NEGATIVE); MUCUS, URINE RFX SMALL (NEGATIVE); NITRITE, URINE AUTO RFX NEGATIVE (NEGATIVE); RBC, URINE AUTO RFX 4 /HPF (0-3); SQUAM EPITHELIAL CELL UR AURFX 0 /HPF (0-6); WBC, URINE AUTO RFX 1 /HPF (0-3)
[2025-02-23 17:13] LABS: CALCIUM LEVEL 6.8 MG/DL (8.3-10.6); CARBON DIOXIDE LEVEL 25.0 MMOL/L (20-31); CHLORIDE LEVEL 106.0 MMOL/L (98-107); CREATININE FOR GFR 1.61 MG/DL (0.70-1.30); GLOMERULAR FILTRATION RATE 40.9 (>35); POTASSIUM SERUM 3.5 MMOL/L (3.5-5.1); SODIUM LEVEL 143.0 MMOL/L (136-145)
[2025-02-23] MEDS: FUROSEMIDE 20 MG/2 ML VIAL IV ONE (20:40)
[2025-02-23] MEDS: TAMSULOSIN 0.4 MG CAP PO SCH (20:40)
[2025-02-24 04:12] VITALS: BP 117/68; TEMP 98.4; O2SAT 97
[2025-02-24 08:12] LABS: CALCIUM LEVEL 6.9 MG/DL (8.3-10.6); CARBON DIOXIDE LEVEL 28.0 MMOL/L (20-31); CHLORIDE LEVEL 106.0 MMOL/L (98-107); CREATININE FOR GFR 1.7 MG/DL (0.70-1.30); GLOMERULAR FILTRATION RATE 38.3 (>35); MAGNESIUM LEVEL 1.3 MG/DL (1.8-2.4); POTASSIUM SERUM 3.3 MMOL/L (3.5-5.1); SODIUM LEVEL 144.0 MMOL/L (136-145)
[2025-02-24] MEDS ORDERED: KCL 20MEQ IN 100ML SWI (KRUN) 20 MEQ in IV 1 EA IV SCH (10:20)
[2025-02-24 12:00] VITALS: BP 116/66; TEMP 97.5; O2SAT 98
[2025-02-24] MEDS: MAG SULF 1GM/100ML (MAG RUN) 1 GM in IV 1 EA IV SCH (12:15)
[2025-02-24] MEDS: FUROSEMIDE 20 MG/2 ML VIAL IV ONE (13:30)
[2025-02-24] MEDS: KCL 10MEQ/100ML SWI (KRUN) IV SCH (15:27)
[2025-02-24] MEDS: FUROSEMIDE 40 MG/4 ML VIAL IV SCH (16:44)
[2025-02-24 18:03] LABS: CALCIUM LEVEL 7.1 MG/DL (8.3-10.6); CARBON DIOXIDE LEVEL 27.0 MMOL/L (20-31); CHLORIDE LEVEL 104.0 MMOL/L (98-107); CREATININE FOR GFR 1.7 MG/DL (0.70-1.30); GLOMERULAR FILTRATION RATE 38.3 (>35); POTASSIUM SERUM 3.5 MMOL/L (3.5-5.1); SODIUM LEVEL 141.0 MMOL/L (136-145)
[2025-02-24 19:45] VITALS: BP 116/64; TEMP 97.7; O2SAT 96
[2025-02-24] MEDS: POTASSIUM CHLORIDE 10MEQ SR TABLET PO SCH (20:08)
[2025-02-24] MEDS: LACTULOSE 20 GM/30 ML SYRUP UDC PO SCH (20:08)
[2025-02-24] MEDS ORDERED: POTASSIUM CHLORIDE 10MEQ SR TABLET PO SCH (21:00)
[2025-02-25 03:58] VITALS: BP 112/68; TEMP 98.1; O2SAT 93
[2025-02-25 07:31] LABS: CALCIUM LEVEL 6.9 MG/DL (8.3-10.6); CARBON DIOXIDE LEVEL 27.0 MMOL/L (20-31); CHLORIDE LEVEL 105.0 MMOL/L (98-107); CREATININE FOR GFR 1.65 MG/DL (0.70-1.30); GLOMERULAR FILTRATION RATE 39.7 (>35); MAGNESIUM LEVEL 1.8 MG/DL (1.8-2.4); POTASSIUM SERUM 3.4 MMOL/L (3.5-5.1); SODIUM LEVEL 143.0 MMOL/L (136-145)
[2025-02-25 08:46] VITALS: BP 119/82
[2025-02-25] MEDS: FUROSEMIDE 20 MG TAB PO SCH (08:46)
[2025-02-25] MEDS: SPIRONOLACTONE 25 MG TAB PO SCH (11:22)
[2025-02-25] MEDS: KCL 10MEQ/100ML SWI (KRUN) 10 MEQ in IV 1 EA IV SCH (11:23)
[2025-02-25 12:05] VITALS: BP 102/71; TEMP 97.7; O2SAT 94
[2025-02-25] MEDS ORDERED: SPIR-10 PO (15:58)
[2025-02-25] MEDS ORDERED: LACTULOSE 20 GM/30 ML SYRUP UDC PO SCH (21:00)
[2025-03-02 07:55] LABS: 25-HYDROXY VITAMIN D2 < 8 pg/mL; 25-HYDROXY VITAMIN D3 31 pg/mL; VITAMIN D 1 25 DIHYDROXY 31 pg/mL (18-72)
== END 2025-02-25 16:46 | DRG 536 ==
LOC: M ED 14:30 → EDBD 14:30 → M ED INP 14:31 → M MSPAV 02-23 01:22 → OBSVTOIN 02-24 13:12 → UNDODISIN 02-25 16:46
PROVIDERS: ADMIT Student in an Organized Health Care Education/Training Program; ATTEND Student in an Organized Health Care Education/Training Program
PROC: 30233N1 Transfusion of Nonautologous Red Blood Cells into Peripheral Vein, Percutaneous Approach (ICD-10-PCS; principal; 2025-02-23)
PROC: B246ZZZ Ultrasonography of Right and Left Heart (ICD-10-PCS; 2025-02-24)
DX: S72.112A Displaced fracture of greater trochanter of left femur, initial encounter for closed fracture (principal); M97.02XA Periprosthetic fracture around internal prosthetic left hip joint, initial encounter; I50.32 Chronic diastolic (congestive) heart failure; D62 Acute posthemorrhagic anemia; N17.9 Acute kidney failure, unspecified; K76.6 Portal hypertension; R18.8 Other ascites; N18.31 Chronic kidney disease, stage 3a; N40.1 Benign prostatic hyperplasia with lower urinary tract symptoms; K74.60 Unspecified cirrhosis of liver; R33.9 Retention of urine, unspecified; G62.9 Polyneuropathy, unspecified; K21.9 Gastro-esophageal reflux disease without esophagitis; G89.29 Other chronic pain; W18.09XA Striking against other object with subsequent fall, initial encounter; Y93.89 Activity, other specified; Y99.8 Other external cause status; E83.42 Hypomagnesemia; Y92.9 Unspecified place or not applicable; Z85.828 Personal history of other malignant neoplasm of skin; Z86.711 Personal history of pulmonary embolism; Z96.643 Presence of artificial hip joint, bilateral; Z98.1 Arthrodesis status; E87.6 Hypokalemia; Z79.01 Long term (current) use of anticoagulants; Z79.899 Other long term (current) drug therapy; Z91.048 Other nonmedicinal substance allergy status; Z85.79 Personal history of other malignant neoplasms of lymphoid, hematopoietic and related tissues

== ENCOUNTER 2025-02-25 14:06 | Inpatient (IN) | payer MEDICARE, BC ==
[~2025-02-25] VITALS: Ht 172.7 cm; Wt 91.1 kg
[~2025-02-25 14:06] MED LIST changes: +KETO120S5 TOP; +OXYC-517 PO; +SENN-188 PO
[2025-02-25] MEDS ORDERED: BISACODYL 5 MG TAB PO PRN (14:50)
[2025-02-25] MEDS ORDERED: ONDANSETRON 4MG ORAL DISINTEGRATING TAB SL PRN (14:50)
[2025-02-25] MEDS ORDERED: SIMETHICONE 80MG CHEW TAB PO PRN (14:50)
[2025-02-25] MEDS ORDERED: BISACODYL 10 MG SUPP PR PRN (14:50)
[2025-02-25] MEDS ORDERED: MAALOX 30 ML SUSP *UDC PO PRN (14:50)
[2025-02-25] MEDS ORDERED: MOM 30 ML SUSPENSION UDC PO PRN (14:50)
[2025-02-25] MEDS ORDERED: SPIR-10 PO (15:58)
[2025-02-25 17:00] VITALS: BP 114/61; TEMP 98.2; O2SAT 93
[2025-02-25 20:00] VITALS: BP 142/59; TEMP 97.2; O2SAT 97
[2025-02-25] MEDS ORDERED: SENNA 8.6 MG TAB PO SCH (21:00)
[2025-02-25] MEDS: SENNA 8.6 MG TAB PO SCH (21:43)
[2025-02-25] MEDS: PANTOPRAZOLE 40MG TAB PO SCH (21:43)
[2025-02-25] MEDS: DOCUSATE SODIUM 100 MG CAPSULE PO SCH (21:43)
[2025-02-25] MEDS: rOPINIRole 0.25 MG TAB PO SCH (21:47)
[2025-02-25] MEDS: TAMSULOSIN 0.4 MG CAP PO SCH (21:47)
[2025-02-25] MEDS: POTASSIUM CHLORIDE 10MEQ SR TABLET PO SCH (21:48)
[2025-02-25] MEDS: LACTULOSE 20 GM/30 ML SYRUP UDC PO SCH (21:49)
[2025-02-26 04:00] VITALS: BP 124/59; TEMP 98.5; O2SAT 93
[2025-02-26 06:29] LABS: BASO # 0.0 10^3/uL (0.0-0.2); BASO % 0.1 % (0.0-1.0); EOS # 0.1 10^3/uL (0.0-0.5); EOS % 1.8 % (0.0-3.0); LYMPH # 1.6 10^3/uL (1.5-5.0); LYMPH % 21.1 % (24.0-44.0); MONO # 1.4 10^3/uL (0.0-0.8); MONO % 17.5 % (2.0-8.0); NEUTROPHILS # 4.6 10^3/uL (1.5-8.5); NEUTROPHILS % 58.5 % (36.0-66.0)
[2025-02-26 06:31] LABS: PLATELET COUNT, AUTOMATED 91 10^3/uL (150-450)
[2025-02-26 06:58] LABS: ALT/SGPT 15.0 U/L (7.0-40); AST/SGOT 30.0 U/L (<34); CALCIUM LEVEL 7.2 MG/DL (8.3-10.6); CARBON DIOXIDE LEVEL 26.0 MMOL/L (20-31); CHLORIDE LEVEL 106.0 MMOL/L (98-107); CREATININE FOR GFR 1.51 MG/DL (0.70-1.30); GLOMERULAR FILTRATION RATE 44.2 (>35); POTASSIUM SERUM 4.0 MMOL/L (3.5-5.1); SODIUM LEVEL 141.0 MMOL/L (136-145)
[2025-02-26] MEDS: FUROSEMIDE 20 MG TAB PO SCH (09:45)
[2025-02-26] MEDS: SPIRONOLACTONE 25 MG TAB PO SCH (09:46)
[2025-02-26] MEDS: THIAMINE 100 MG TAB PO SCH (09:46)
[2025-02-26] MEDS ORDERED: PILL CUTTER 1 EACH XX PRN (11:10)
[2025-02-26 12:00] VITALS: BP 111/57; TEMP 97.2; O2SAT 98
[2025-02-26] MEDS: APIXABAN 5 MG TAB PO ONE (12:38)
[2025-02-26] MEDS: APIXABAN 5 MG TAB PO SCH (19:54)
[2025-02-26 20:00] VITALS: BP 119/66; TEMP 97.3; O2SAT 95
[2025-02-26] MEDS: risperiDONE 0.5 MG TAB PO SCH (20:05)
[2025-02-26] MEDS: RAMELTEON 8 MG TAB PO PRN (22:30)
[2025-02-27 04:00] VITALS: BP 120/60; TEMP 97.9; O2SAT 96
[2025-02-27 12:00] VITALS: BP 103/58; TEMP 97.8; O2SAT 98
[2025-02-27 14:34] LABS: KETONE, URINE AUTO RFX NEGATIVE (NEGATIVE); MUCUS, URINE RFX LARGE (NEGATIVE); NITRITE, URINE AUTO RFX NEGATIVE (NEGATIVE); RBC, URINE AUTO RFX TNTC /HPF (0-3); SQUAM EPITHELIAL CELL UR AURFX 0 /HPF (0-6)
[2025-02-27 14:59] LABS: LEUKOCYTE ESTERASE UR AUTO RFX 1+ (NEGATIVE); WBC, URINE AUTO RFX 20 /HPF (0-3)
[2025-02-27] MEDS: risperiDONE 0.5 MG TAB PO SCH (17:39)
[2025-02-27 20:00] VITALS: BP 121/59; TEMP 97.4; O2SAT 95
[2025-02-27] MEDS: NITROFURANTOIN 100 MG CAP PO SCH (21:09)
[2025-02-27] MEDS: risperiDONE 0.5 MG TAB PO PRN (21:11)
[2025-02-28 04:00] VITALS: BP 126/65; TEMP 97.1; O2SAT 96
[2025-02-28 07:35] LABS: BASO # 0.0 10^3/uL (0.0-0.2); BASO % 0.2 % (0.0-1.0); EOS # 0.2 10^3/uL (0.0-0.5); EOS % 2.7 % (0.0-3.0); LYMPH # 1.5 10^3/uL (1.5-5.0); LYMPH % 22.3 % (24.0-44.0); MONO # 1.0 10^3/uL (0.0-0.8); MONO % 15.5 % (2.0-8.0); NEUTROPHILS # 3.9 10^3/uL (1.5-8.5); NEUTROPHILS % 58.2 % (36.0-66.0)
[2025-02-28 07:38] LABS: PLATELET COUNT, AUTOMATED 98 10^3/uL (150-450)
[2025-02-28 07:47] LABS: CALCIUM LEVEL 7.7 MG/DL (8.3-10.6); CARBON DIOXIDE LEVEL 24.0 MMOL/L (20-31); CHLORIDE LEVEL 108.0 MMOL/L (98-107); CREATININE FOR GFR 1.34 MG/DL (0.70-1.30); GLOMERULAR FILTRATION RATE 51.0 (>35); POTASSIUM SERUM 4.7 MMOL/L (3.5-5.1); SODIUM LEVEL 142.0 MMOL/L (136-145)
[2025-02-28 12:26] VITALS: BP 117/67; TEMP 97.2; O2SAT 96
[2025-02-28] MEDS: ACETAMINOPHEN 500 MG TAB PO PRN (15:46)
[2025-02-28 20:00] VITALS: BP 110/57; TEMP 97.6; O2SAT 98
[2025-03-01 06:15] VITALS: BP 120/55; TEMP 98; O2SAT 94
[2025-03-01 12:00] VITALS: BP 111/56; TEMP 97.5; O2SAT 98
[2025-03-01 20:16] VITALS: BP 110/55; TEMP 97.5; O2SAT 96
[2025-03-02 04:06] VITALS: BP 128/60; TEMP 97.8; O2SAT 96
[2025-03-02 12:00] VITALS: BP 115/53; TEMP 97.5; O2SAT 95
[2025-03-02 20:03] VITALS: BP 126/61; TEMP 97.2; O2SAT 97
[2025-03-03 03:54] VITALS: BP 108/57; TEMP 98; O2SAT 94
[2025-03-03 08:19] LABS: BASO # 0.0 10^3/uL (0.0-0.2); BASO % 0.3 % (0.0-1.0); EOS # 0.1 10^3/uL (0.0-0.5); EOS % 1.9 % (0.0-3.0); LYMPH # 1.2 10^3/uL (1.5-5.0); LYMPH % 18.5 % (24.0-44.0); MONO # 0.9 10^3/uL (0.0-0.8); MONO % 13.2 % (2.0-8.0); NEUTROPHILS # 4.3 10^3/uL (1.5-8.5); NEUTROPHILS % 64.3 % (36.0-66.0); PLATELET COUNT, AUTOMATED 123 10^3/uL (150-450)
[2025-03-03 08:49] LABS: CALCIUM LEVEL 8.3 MG/DL (8.3-10.6); CARBON DIOXIDE LEVEL 24.0 MMOL/L (20-31); CHLORIDE LEVEL 106.0 MMOL/L (98-107); CREATININE FOR GFR 1.27 MG/DL (0.70-1.30); GLOMERULAR FILTRATION RATE 54.3 (>35); POTASSIUM SERUM 5.2 MMOL/L (3.5-5.1); SODIUM LEVEL 141.0 MMOL/L (136-145)
[2025-03-03] MEDS: SOD POLYSTYRENE SULFONATE SUSP 15GM 60ML UD PO ONE (11:57)
[2025-03-03 12:00] VITALS: BP 119/66; TEMP 97; O2SAT 97
[2025-03-03 20:00] VITALS: BP 124/64; TEMP 97.6; O2SAT 97
[2025-03-04 05:30] VITALS: BP 129/68; TEMP 97.7; O2SAT 96
[2025-03-04 07:32] LABS: BASO # 0.0 10^3/uL (0.0-0.2); BASO % 0.4 % (0.0-1.0); EOS # 0.1 10^3/uL (0.0-0.5); EOS % 1.8 % (0.0-3.0); LYMPH # 1.6 10^3/uL (1.5-5.0); LYMPH % 21.4 % (24.0-44.0); MONO # 1.1 10^3/uL (0.0-0.8); MONO % 15.1 % (2.0-8.0); NEUTROPHILS # 4.4 10^3/uL (1.5-8.5); NEUTROPHILS % 60.1 % (36.0-66.0); PLATELET COUNT, AUTOMATED 143 10^3/uL (150-450)
[2025-03-04 07:47] LABS: CALCIUM LEVEL 8.1 MG/DL (8.3-10.6); CARBON DIOXIDE LEVEL 23.0 MMOL/L (20-31); CHLORIDE LEVEL 107.0 MMOL/L (98-107); CREATININE FOR GFR 1.26 MG/DL (0.70-1.30); GLOMERULAR FILTRATION RATE 54.9 (>35); POTASSIUM SERUM 4.3 MMOL/L (3.5-5.1); SODIUM LEVEL 142.0 MMOL/L (136-145)
[2025-03-04] MEDS: SUCRALFATE 1 GM TAB PO SCH (11:57)
[2025-03-04 12:00] VITALS: BP 115/61; TEMP 97.6; O2SAT 99
[2025-03-04 20:00] VITALS: BP 101/60; TEMP 98.4; O2SAT 95
[2025-03-05 04:00] VITALS: BP 114/57; TEMP 98.8; O2SAT 94
[2025-03-05 06:43] LABS: BASO # 0.0 10^3/uL (0.0-0.2); BASO % 0.2 % (0.0-1.0); EOS # 0.1 10^3/uL (0.0-0.5); EOS % 1.4 % (0.0-3.0); LYMPH # 1.4 10^3/uL (1.5-5.0); LYMPH % 21.7 % (24.0-44.0); MONO # 1.2 10^3/uL (0.0-0.8); MONO % 18.4 % (2.0-8.0); NEUTROPHILS # 3.6 10^3/uL (1.5-8.5); NEUTROPHILS % 57.2 % (36.0-66.0); PLATELET COUNT, AUTOMATED 119 10^3/uL (150-450)
[2025-03-05 07:11] LABS: CALCIUM LEVEL 7.6 MG/DL (8.3-10.6); CARBON DIOXIDE LEVEL 25.0 MMOL/L (20-31); CHLORIDE LEVEL 106.0 MMOL/L (98-107); CREATININE FOR GFR 1.3 MG/DL (0.70-1.30); GLOMERULAR FILTRATION RATE 52.8 (>35); POTASSIUM SERUM 4.1 MMOL/L (3.5-5.1); SODIUM LEVEL 141.0 MMOL/L (136-145)
[2025-03-05 08:03] VITALS: BP 121/58
[2025-03-05 12:00] VITALS: BP 119/62; TEMP 97.5; O2SAT 95
[2025-03-05 20:00] VITALS: BP 125/61; TEMP 97.6; O2SAT 96
[2025-03-06 04:00] VITALS: BP 121/63; TEMP 97.6; O2SAT 96
[2025-03-06 07:54] LABS: BASO # 0.0 10^3/uL (0.0-0.2); BASO % 0.3 % (0.0-1.0); EOS # 0.1 10^3/uL (0.0-0.5); EOS % 1.7 % (0.0-3.0); LYMPH # 1.5 10^3/uL (1.5-5.0); LYMPH % 21.7 % (24.0-44.0); MONO # 1.1 10^3/uL (0.0-0.8); MONO % 16.0 % (2.0-8.0); NEUTROPHILS # 4.1 10^3/uL (1.5-8.5); NEUTROPHILS % 59.2 % (36.0-66.0); PLATELET COUNT, AUTOMATED 129 10^3/uL (150-450)
[2025-03-06 08:24] LABS: CALCIUM LEVEL 7.8 MG/DL (8.3-10.6); CARBON DIOXIDE LEVEL 25.0 MMOL/L (20-31); CHLORIDE LEVEL 103.0 MMOL/L (98-107); CREATININE FOR GFR 1.2 MG/DL (0.70-1.30); GLOMERULAR FILTRATION RATE 58.2 (>35); POTASSIUM SERUM 3.9 MMOL/L (3.5-5.1); SODIUM LEVEL 139.0 MMOL/L (136-145)
[2025-03-06] MEDS ORDERED: RISP0.253 PO (11:23)
[2025-03-06] MEDS ORDERED: FURO20TA2 PO (11:23)
[2025-03-06] MEDS ORDERED: ELIQ5TAB PO (11:23)
[2025-03-06] MEDS ORDERED: TAMS-18 PO (11:23)
[2025-03-06] MEDS ORDERED: SPIR-10 PO (11:23)
[2025-03-06] MEDS ORDERED: ACET-683 PO (11:23)
[2025-03-06] MEDS ORDERED: ROPI0.5T33 PO (11:23)
[2025-03-06] MEDS ORDERED: PANT40TA29 PO (11:23)
[2025-03-06] MEDS ORDERED: OXYC-517 PO ×2 (11:23→11:35)
[2025-03-06] MEDS ORDERED: HYDR-3364 PO (11:23)
[2025-03-06 12:00] VITALS: BP 118/61; TEMP 97.7; O2SAT 97
[2025-03-06] MEDS ORDERED: IPRATROPIUM 0.5 MG/ALBUTEROL 2.5 MG INH SOL UD 3 ML NEB PRN (15:00)
[2025-03-06] MEDS: METOPROLOL SUCC. 25 MG *XL* TAB PO SCH (16:28)
[2025-03-06 20:00] VITALS: BP 108/58; TEMP 97.4; O2SAT 96
[2025-03-06] MEDS: guaiFENesin ER TABLET 600 MG TAB PO SCH (20:56)
[2025-03-07 04:00] VITALS: BP 109/53; TEMP 97.9; O2SAT 96
[2025-03-07 07:55] VITALS: BP 102/54
[2025-03-07 08:00] VITALS: BP 102/54
[2025-03-07 08:40] LABS: BASO # 0.0 10^3/uL (0.0-0.2); BASO % 0.3 % (0.0-1.0); EOS # 0.1 10^3/uL (0.0-0.5); EOS % 0.8 % (0.0-3.0); LYMPH # 0.8 10^3/uL (1.5-5.0); LYMPH % 11.3 % (24.0-44.0); MONO # 0.9 10^3/uL (0.0-0.8); MONO % 12.4 % (2.0-8.0); NEUTROPHILS # 5.3 10^3/uL (1.5-8.5); NEUTROPHILS % 74.2 % (36.0-66.0); PLATELET COUNT, AUTOMATED 146 10^3/uL (150-450)
[2025-03-07 09:07] LABS: CALCIUM LEVEL 8.2 MG/DL (8.3-10.6); CARBON DIOXIDE LEVEL 23.0 MMOL/L (20-31); CHLORIDE LEVEL 105.0 MMOL/L (98-107); CREATININE FOR GFR 1.14 MG/DL (0.70-1.30); GLOMERULAR FILTRATION RATE 61.9 (>35); POTASSIUM SERUM 4.0 MMOL/L (3.5-5.1); SODIUM LEVEL 139.0 MMOL/L (136-145)
[2025-03-07] MEDS ORDERED: METO1TAB32 PO (09:15)
[2025-03-07 12:00] VITALS: BP 120/60; TEMP 97.5; O2SAT 97
== END 2025-03-07 13:30 | disposition home health service (06) | DRG 560 ==
LOC: M PM&R 17:00
PROVIDERS: ADMIT Physical Medicine & Rehabilitation; ATTEND Physical Medicine & Rehabilitation
DX: S72.112D Displaced fracture of greater trochanter of left femur, subsequent encounter for closed fracture with routine healing (principal); I50.32 Chronic diastolic (congestive) heart failure; K76.6 Portal hypertension; I13.0 Hypertensive heart and chronic kidney disease with heart failure and stage 1 through stage 4 chronic kidney disease, or unspecified chronic kidney disease; D62 Acute posthemorrhagic anemia; F05 Delirium due to known physiological condition; M97.02XD Periprosthetic fracture around internal prosthetic left hip joint, subsequent encounter; K74.60 Unspecified cirrhosis of liver; N18.31 Chronic kidney disease, stage 3a; N40.1 Benign prostatic hyperplasia with lower urinary tract symptoms; G62.9 Polyneuropathy, unspecified; R32 Unspecified urinary incontinence; G89.29 Other chronic pain; R31.9 Hematuria, unspecified; E87.6 Hypokalemia; G47.00 Insomnia, unspecified; R33.9 Retention of urine, unspecified; D69.6 Thrombocytopenia, unspecified; E87.5 Hyperkalemia; R05.9 Cough, unspecified; K21.9 Gastro-esophageal reflux disease without esophagitis; Z85.828 Personal history of other malignant neoplasm of skin; Z85.79 Personal history of other malignant neoplasms of lymphoid, hematopoietic and related tissues; Z92.21 Personal history of antineoplastic chemotherapy; Z96.643 Presence of artificial hip joint, bilateral; Z86.711 Personal history of pulmonary embolism; Z98.1 Arthrodesis status; Z74.09 Other reduced mobility; Z74.1 Need for assistance with personal care; G25.81 Restless legs syndrome; Z79.01 Long term (current) use of anticoagulants; Z79.899 Other long term (current) drug therapy; Z91.048 Other nonmedicinal substance allergy status

== ENCOUNTER → 2025-03-11 | Outpatient (CLI) | payer MEDICARE, BC ==
[~2025-03-11] MED LIST changes: +METO1TAB32 PO; +SPIR-10 PO
== END ==
LOC: M SOG 07:28
PROVIDERS: ATTEND Orthopaedic Surgery
DX: M25.552 Pain in left hip (principal); Z96.642 Presence of left artificial hip joint

== ENCOUNTER 2025-03-16 14:15 | Inpatient (IN) | payer MEDICARE, BC ==
[~2025-03-16] VITALS: Ht 167.6 cm; Wt 91.2 kg
[2025-03-16 15:38] LABS: BASO # 0.0 10^3/uL (0.0-0.2); BASO % 0.3 % (0.0-1.0); EOS # 0.1 10^3/uL (0.0-0.5); EOS % 1.2 % (0.0-3.0); LYMPH # 1.1 10^3/uL (1.5-5.0); LYMPH % 14.3 % (24.0-44.0); MONO # 1.0 10^3/uL (0.0-0.8); MONO % 12.9 % (2.0-8.0); NEUTROPHILS # 5.3 10^3/uL (1.5-8.5); NEUTROPHILS % 70.4 % (36.0-66.0); PLATELET COUNT, AUTOMATED 126 10^3/uL (150-450)
[2025-03-16 16:02] LABS: ALT/SGPT 18.0 U/L (7.0-40); AST/SGOT 29.0 U/L (<34); CALCIUM LEVEL 8.1 MG/DL (8.3-10.6); CARBON DIOXIDE LEVEL 26.0 MMOL/L (20-31); CHLORIDE LEVEL 101.0 MMOL/L (98-107); CREATININE FOR GFR 1.26 MG/DL (0.70-1.30); GLOMERULAR FILTRATION RATE 54.9 (>35); POTASSIUM SERUM 4.2 MMOL/L (3.5-5.1); SODIUM LEVEL 136.0 MMOL/L (136-145)
[2025-03-16 16:19] LABS: MAGNESIUM LEVEL 1.8 MG/DL (1.8-2.4)
[2025-03-16] MEDS ORDERED: HYDR-3363 PO (17:12)
[2025-03-16] MEDS ORDERED: METO1TAB32 PO (17:15)
[2025-03-16 17:16] LABS: KETONE, URINE AUTO RFX NEGATIVE (NEGATIVE); MUCUS, URINE RFX SMALL (NEGATIVE); NITRITE, URINE AUTO RFX NEGATIVE (NEGATIVE); RBC, URINE AUTO RFX 29 /HPF (0-3); SQUAM EPITHELIAL CELL UR AURFX 5 /HPF (0-6)
[2025-03-16] MEDS ORDERED: OXYC-517 PO (17:17)
[2025-03-16 17:18] LABS: LEUKOCYTE ESTERASE UR AUTO RFX 2+ (NEGATIVE); WBC, URINE AUTO RFX TNTC /HPF (0-3)
[2025-03-16] MEDS ORDERED: SPIR-10 PO (17:24)
[2025-03-16] MEDS ORDERED: TAMS1CAP17 PO (17:25)
[2025-03-16] MEDS ORDERED: HOME MED LIST COMPLETE! XX SCH (17:30)
[2025-03-16] MEDS: cefTRIAXone SOD 1 GM in DEXTROSE 5% (D5W) ADV/MINI-BAG 50 ML IV ONE (18:08)
[2025-03-16] MEDS ORDERED: ONDANSETRON 4MG/2ML VIAL IV PRN (22:00)
[2025-03-16] MEDS: NS (Normal Saline) 0.9% 1,000 ML IV SCH (22:29)
[2025-03-16] MEDS: APIXABAN 5 MG TAB PO SCH (22:59)
[2025-03-16] MEDS: PANTOPRAZOLE 40MG TAB PO SCH (22:59)
[2025-03-16] MEDS: TAMSULOSIN 0.4 MG CAP PO SCH (23:00)
[2025-03-16] MEDS: LACTULOSE 20 GM/30 ML SYRUP UDC PO SCH (23:37)
[2025-03-16] MEDS: rOPINIRole 0.25 MG TAB PO SCH (23:37)
[2025-03-17 07:35] LABS: PLATELET COUNT, AUTOMATED 101 10^3/uL (150-450)
[2025-03-17 07:57] LABS: CALCIUM LEVEL 7.6 MG/DL (8.3-10.6); CARBON DIOXIDE LEVEL 23.0 MMOL/L (20-31); CHLORIDE LEVEL 107.0 MMOL/L (98-107); CREATININE FOR GFR 1.1 MG/DL (0.70-1.30); GLOMERULAR FILTRATION RATE 64.6 (>35); MAGNESIUM LEVEL 1.6 MG/DL (1.8-2.4); POTASSIUM SERUM 4.2 MMOL/L (3.5-5.1); SODIUM LEVEL 140.0 MMOL/L (136-145)
[2025-03-17] MEDS: METOPROLOL SUCC. 25 MG *XL* TAB PO SCH (08:41)
[2025-03-17] MEDS ORDERED: SPIRONOLACTONE 25 MG TAB PO SCH (09:00)
[2025-03-17 09:30] VITALS: BP 92/54; TEMP 97.5; O2SAT 94
[2025-03-17 09:43] LABS: ALT/SGPT 17.0 U/L (7.0-40); AST/SGOT 30.0 U/L (<34)
[2025-03-17] MEDS: MAG SULF 1GM/100ML (MAG RUN) 1 GM in IV 1 EA IV SCH (10:06)
[2025-03-17 12:00] VITALS: BP 96/55; TEMP 97.7; O2SAT 94
[2025-03-17] MEDS: cefTRIAXone SOD 1 GM in DEXTROSE 5% (D5W) ADV/MINI-BAG 50 ML IV SCH (17:48)
[2025-03-18 03:26] VITALS: BP 106/57; TEMP 97.7; O2SAT 94
[2025-03-18 06:55] LABS: BASO # 0.0 10^3/uL (0.0-0.2); BASO % 0.2 % (0.0-1.0); EOS # 0.1 10^3/uL (0.0-0.5); EOS % 1.7 % (0.0-3.0); LYMPH # 1.4 10^3/uL (1.5-5.0); LYMPH % 25.3 % (24.0-44.0); MONO # 0.8 10^3/uL (0.0-0.8); MONO % 14.7 % (2.0-8.0); NEUTROPHILS # 3.1 10^3/uL (1.5-8.5); NEUTROPHILS % 56.8 % (36.0-66.0); PLATELET COUNT, AUTOMATED 111 10^3/uL (150-450)
[2025-03-18 07:22] LABS: ALT/SGPT 15.0 U/L (7.0-40); AST/SGOT 25.0 U/L (<34); CALCIUM LEVEL 7.8 MG/DL (8.3-10.6); CARBON DIOXIDE LEVEL 26.0 MMOL/L (20-31); CHLORIDE LEVEL 105.0 MMOL/L (98-107); CREATININE FOR GFR 1.11 MG/DL (0.70-1.30); GLOMERULAR FILTRATION RATE 63.9 (>35); MAGNESIUM LEVEL 1.9 MG/DL (1.8-2.4); POTASSIUM SERUM 4.0 MMOL/L (3.5-5.1); SODIUM LEVEL 139.0 MMOL/L (136-145)
[2025-03-18] MEDS ORDERED: LevoFLOXacin IV 750 MG in IV 1 EA IV SCH (11:15)
[2025-03-18] MEDS ORDERED: ACETAMINOPHEN 325 MG TAB PO PRN (11:55)
[2025-03-18 12:00] VITALS: BP 123/69; TEMP 97.2; O2SAT 94
[2025-03-18 20:08] VITALS: BP 121/58; TEMP 98.2; O2SAT 95
[2025-03-19 03:26] VITALS: BP 122/61; TEMP 98.8; O2SAT 96
[2025-03-19 06:40] LABS: CALCIUM LEVEL 7.9 MG/DL (8.3-10.6); CARBON DIOXIDE LEVEL 26.0 MMOL/L (20-31); CHLORIDE LEVEL 106.0 MMOL/L (98-107); CREATININE FOR GFR 1.07 MG/DL (0.70-1.30); GLOMERULAR FILTRATION RATE 66.8 (>35); MAGNESIUM LEVEL 1.9 MG/DL (1.8-2.4); POTASSIUM SERUM 4.2 MMOL/L (3.5-5.1); SODIUM LEVEL 140.0 MMOL/L (136-145)
[2025-03-19 08:35] VITALS: BP 108/52
[2025-03-19 12:00] VITALS: BP 110/57; TEMP 98.1; O2SAT 99
[2025-03-19] MEDS ORDERED: LEVO75TAB PO (13:08)
[2025-03-19] MEDS ORDERED: LACTULOSE 20 GM/30 ML SYRUP UDC PO SCH (21:00)
== END 2025-03-19 16:55 | DRG 689 ==
LOC: M ED 14:15 → M ED INP 21:56 → M MSPAV 03-17 09:23
PROVIDERS: ADMIT Student in an Organized Health Care Education/Training Program; ATTEND Student in an Organized Health Care Education/Training Program
DX: N39.0 Urinary tract infection, site not specified (principal); G93.41 Metabolic encephalopathy; I50.32 Chronic diastolic (congestive) heart failure; K59.00 Constipation, unspecified; K74.60 Unspecified cirrhosis of liver; N18.31 Chronic kidney disease, stage 3a; N40.1 Benign prostatic hyperplasia with lower urinary tract symptoms; G62.9 Polyneuropathy, unspecified; G89.29 Other chronic pain; B95.2 Enterococcus as the cause of diseases classified elsewhere; K21.9 Gastro-esophageal reflux disease without esophagitis; R05.9 Cough, unspecified; R60.0 Localized edema; Z85.79 Personal history of other malignant neoplasms of lymphoid, hematopoietic and related tissues; Z92.21 Personal history of antineoplastic chemotherapy; L89.152 Pressure ulcer of sacral region, stage 2; Z98.1 Arthrodesis status; Z96.643 Presence of artificial hip joint, bilateral; Z79.01 Long term (current) use of anticoagulants; Z86.711 Personal history of pulmonary embolism; Z85.828 Personal history of other malignant neoplasm of skin; Z79.899 Other long term (current) drug therapy; Z91.048 Other nonmedicinal substance allergy status

== ENCOUNTER 2025-03-19 14:10 | Inpatient (IN) | payer MEDICARE, BC ==
[~2025-03-19] VITALS: Ht 167.6 cm; Wt 90.0 kg
[~2025-03-19 14:10] MED LIST changes: +HYDR-3363 PO; +LEVO75TAB PO; +TAMS1CAP17 PO
[2025-03-19] MEDS ORDERED: risperiDONE 0.5 MG TAB PO PRN (15:15)
[2025-03-19] MEDS ORDERED: BISACODYL 10 MG SUPP PR PRN (15:25)
[2025-03-19] MEDS ORDERED: ONDANSETRON 4MG ORAL DISINTEGRATING TAB PO PRN (15:25)
[2025-03-19] MEDS ORDERED: MAALOX 30 ML SUSP *UDC PO PRN (15:25)
[2025-03-19] MEDS ORDERED: MOM 30 ML SUSPENSION UDC PO PRN (15:25)
[2025-03-19] MEDS ORDERED: BISACODYL 5 MG TAB PO PRN (15:25)
[2025-03-19] MEDS ORDERED: SIMETHICONE 80MG CHEW TAB PO PRN (15:25)
[2025-03-19 16:58] VITALS: BP 146/72; TEMP 98.5; O2SAT 97
[2025-03-19] MEDS ORDERED: PILL CUTTER 1 EACH XX PRN (17:20)
[2025-03-19 20:00] VITALS: BP 122/59; TEMP 97.8; O2SAT 97
[2025-03-19] MEDS: TAMSULOSIN 0.4 MG CAP PO SCH (20:45)
[2025-03-19] MEDS: rOPINIRole 0.25 MG TAB PO SCH (20:45)
[2025-03-19] MEDS: PANTOPRAZOLE 40MG TAB PO SCH (20:45)
[2025-03-19] MEDS: risperiDONE 0.5 MG TAB PO SCH (20:45)
[2025-03-19] MEDS: APIXABAN 5 MG TAB PO SCH (20:46)
[2025-03-19] MEDS: LACTULOSE 20 GM/30 ML SYRUP UDC PO SCH (20:46)
[2025-03-20 04:00] VITALS: BP 117/57; TEMP 98.2; O2SAT 98
[2025-03-20 06:50] LABS: BASO # 0.0 10^3/uL (0.0-0.2); BASO % 0.2 % (0.0-1.0); EOS # 0.1 10^3/uL (0.0-0.5); EOS % 3.0 % (0.0-3.0); LYMPH # 1.2 10^3/uL (1.5-5.0); LYMPH % 26.5 % (24.0-44.0); MONO # 0.7 10^3/uL (0.0-0.8); MONO % 15.7 % (2.0-8.0); NEUTROPHILS # 2.5 10^3/uL (1.5-8.5); NEUTROPHILS % 53.9 % (36.0-66.0); PLATELET COUNT, AUTOMATED 110 10^3/uL (150-450)
[2025-03-20 07:10] LABS: ALT/SGPT 13.0 U/L (7.0-40); AST/SGOT 26.0 U/L (<34); CALCIUM LEVEL 8.1 MG/DL (8.3-10.6); CARBON DIOXIDE LEVEL 25.0 MMOL/L (20-31); CHLORIDE LEVEL 108.0 MMOL/L (98-107); CREATININE FOR GFR 1.04 MG/DL (0.70-1.30); GLOMERULAR FILTRATION RATE 69.1 (>35); POTASSIUM SERUM 4.3 MMOL/L (3.5-5.1); SODIUM LEVEL 141.0 MMOL/L (136-145)
[2025-03-20 08:50] VITALS: BP 109/57
[2025-03-20] MEDS: METOPROLOL SUCC. 25 MG *XL* TAB PO SCH (08:52)
[2025-03-20] MEDS: SPIRONOLACTONE 25 MG TAB PO SCH (09:00)
[2025-03-20 12:00] VITALS: BP 122/58; TEMP 97.6; O2SAT 97
[2025-03-20 20:00] VITALS: BP 117/57; TEMP 98.9; O2SAT 97
[2025-03-21 04:00] VITALS: BP 119/57; TEMP 98.9; O2SAT 95
[2025-03-21 07:14] LABS: BASO # 0.0 10^3/uL (0.0-0.2); BASO % 0.2 % (0.0-1.0); EOS # 0.1 10^3/uL (0.0-0.5); EOS % 2.4 % (0.0-3.0); LYMPH # 1.1 10^3/uL (1.5-5.0); LYMPH % 22.5 % (24.0-44.0); MONO # 0.8 10^3/uL (0.0-0.8); MONO % 16.0 % (2.0-8.0); NEUTROPHILS # 2.9 10^3/uL (1.5-8.5); NEUTROPHILS % 57.9 % (36.0-66.0); PLATELET COUNT, AUTOMATED 115 10^3/uL (150-450)
[2025-03-21 07:31] LABS: CALCIUM LEVEL 8.1 MG/DL (8.3-10.6); CARBON DIOXIDE LEVEL 29.0 MMOL/L (20-31); CHLORIDE LEVEL 105.0 MMOL/L (98-107); CREATININE FOR GFR 1.14 MG/DL (0.70-1.30); GLOMERULAR FILTRATION RATE 61.9 (>35); POTASSIUM SERUM 4.8 MMOL/L (3.5-5.1); SODIUM LEVEL 140.0 MMOL/L (136-145)
[2025-03-21 12:00] VITALS: BP 115/55; TEMP 98.1; O2SAT 96
[2025-03-21 20:00] VITALS: BP 123/58; TEMP 99; O2SAT 96
[2025-03-22 04:00] VITALS: BP 120/60; TEMP 98.6; O2SAT 94
[2025-03-22 06:19] LABS: CALCIUM LEVEL 7.9 MG/DL (8.3-10.6); CARBON DIOXIDE LEVEL 26.0 MMOL/L (20-31); CHLORIDE LEVEL 105.0 MMOL/L (98-107); CREATININE FOR GFR 1.12 MG/DL (0.70-1.30); GLOMERULAR FILTRATION RATE 63.2 (>35); POTASSIUM SERUM 5.1 MMOL/L (3.5-5.1); SODIUM LEVEL 141.0 MMOL/L (136-145)
[2025-03-22 12:40] VITALS: BP 122/55; TEMP 97; O2SAT 97
[2025-03-22 20:00] VITALS: BP 120/55; TEMP 97.8; O2SAT 96
[2025-03-23 04:00] VITALS: BP 127/59; TEMP 98.7; O2SAT 96
[2025-03-23 06:23] LABS: CALCIUM LEVEL 8.0 MG/DL (8.3-10.6); CARBON DIOXIDE LEVEL 29.0 MMOL/L (20-31); CHLORIDE LEVEL 105.0 MMOL/L (98-107); CREATININE FOR GFR 1.13 MG/DL (0.70-1.30); GLOMERULAR FILTRATION RATE 62.5 (>35); POTASSIUM SERUM 5.0 MMOL/L (3.5-5.1); SODIUM LEVEL 141.0 MMOL/L (136-145)
[2025-03-23 12:00] VITALS: BP 114/59; TEMP 98.1; O2SAT 96
[2025-03-23 20:00] VITALS: BP 109/56; TEMP 98.1; O2SAT 96
[2025-03-24 04:00] VITALS: BP 118/59; TEMP 98.7; O2SAT 96
[2025-03-24 12:00] VITALS: BP 110/63; TEMP 97.2; O2SAT 97
[2025-03-24] MEDS: ACETAMINOPHEN 500 MG TAB PO PRN (12:11)
[2025-03-24 20:00] VITALS: BP 99/61; TEMP 97.8; O2SAT 97
[2025-03-25 04:00] VITALS: BP 126/60; TEMP 98; O2SAT 95
[2025-03-25 07:19] VITALS: BP 116/59
[2025-03-25] MEDS: FUROSEMIDE 20 MG TAB PO ONE (11:31)
[2025-03-25 12:00] VITALS: BP 102/59; TEMP 97.4; O2SAT 97
[2025-03-25 20:00] VITALS: BP 133/65; TEMP 97.4; O2SAT 97
[2025-03-26 04:00] VITALS: BP 116/59; TEMP 97.5; O2SAT 95
[2025-03-26 08:01] LABS: BASO # 0.0 10^3/uL (0.0-0.2); BASO % 0.4 % (0.0-1.0); EOS # 0.2 10^3/uL (0.0-0.5); EOS % 3.0 % (0.0-3.0); LYMPH # 1.1 10^3/uL (1.5-5.0); LYMPH % 21.2 % (24.0-44.0); MONO # 0.7 10^3/uL (0.0-0.8); MONO % 13.3 % (2.0-8.0); NEUTROPHILS # 3.1 10^3/uL (1.5-8.5); NEUTROPHILS % 61.1 % (36.0-66.0); PLATELET COUNT, AUTOMATED 119 10^3/uL (150-450)
[2025-03-26 08:22] LABS: CALCIUM LEVEL 8.2 MG/DL (8.3-10.6); CARBON DIOXIDE LEVEL 27.0 MMOL/L (20-31); CHLORIDE LEVEL 105.0 MMOL/L (98-107); CREATININE FOR GFR 1.29 MG/DL (0.70-1.30); GLOMERULAR FILTRATION RATE 53.3 (>35); POTASSIUM SERUM 4.4 MMOL/L (3.5-5.1); SODIUM LEVEL 141.0 MMOL/L (136-145)
[2025-03-26 12:21] VITALS: BP 114/59; TEMP 97.7; O2SAT 98
[2025-03-26] MEDS: FUROSEMIDE 40 MG TAB PO ONE (14:47)
[2025-03-26 20:00] VITALS: BP 114/58; TEMP 98.1; O2SAT 95
[2025-03-27 04:00] VITALS: BP 103/58; TEMP 98.3; O2SAT 92
[2025-03-27] MEDS ORDERED: KALEPOW PO (11:28)
[2025-03-27 12:00] VITALS: BP 117/55; TEMP 98.1; O2SAT 96
[2025-03-27] MEDS ORDERED: FUROSEMIDE 40 MG TAB PO ONE (12:00)
[2025-03-27] MEDS: SPIRONOLACTONE 25 MG TAB PO ONE (12:05)
[2025-03-27 13:21] LABS: CALCIUM LEVEL 7.9 MG/DL (8.3-10.6); CARBON DIOXIDE LEVEL 26.0 MMOL/L (20-31); CHLORIDE LEVEL 101.0 MMOL/L (98-107); CREATININE FOR GFR 1.27 MG/DL (0.70-1.30); GLOMERULAR FILTRATION RATE 54.3 (>35); POTASSIUM SERUM 4.7 MMOL/L (3.5-5.1); SODIUM LEVEL 137.0 MMOL/L (136-145)
[2025-03-27] MEDS: LACTULOSE 20 GM/30 ML SYRUP UDC PO SCH (16:50)
[2025-03-27 20:00] VITALS: BP 117/56; TEMP 98.8; O2SAT 98
[2025-03-28 04:00] VITALS: BP 140/64; TEMP 97.5; O2SAT 95
[2025-03-28 08:46] VITALS: BP 117/60
[2025-03-28 08:48] VITALS: BP 117/60
[2025-03-28] MEDS: FUROSEMIDE 40 MG TAB PO SCH (08:48)
[2025-03-28] MEDS ORDERED: FURO40TA2 PO (10:14)
[2025-03-28 12:00] VITALS: BP 112/58; TEMP 97.1; O2SAT 98
== END 2025-03-28 13:13 | disposition home health service (06) | DRG 70 ==
LOC: M PM&R 16:58
PROVIDERS: ADMIT Physical Medicine & Rehabilitation; ATTEND Physical Medicine & Rehabilitation
DX: G93.41 Metabolic encephalopathy (principal); L89.153 Pressure ulcer of sacral region, stage 3; I50.32 Chronic diastolic (congestive) heart failure; K76.6 Portal hypertension; N39.0 Urinary tract infection, site not specified; K74.60 Unspecified cirrhosis of liver; N18.30 Chronic kidney disease, stage 3 unspecified; N40.1 Benign prostatic hyperplasia with lower urinary tract symptoms; R33.9 Retention of urine, unspecified; M79.2 Neuralgia and neuritis, unspecified; K21.9 Gastro-esophageal reflux disease without esophagitis; M25.552 Pain in left hip; E87.5 Hyperkalemia; G25.81 Restless legs syndrome; B95.2 Enterococcus as the cause of diseases classified elsewhere; M79.605 Pain in left leg; Z85.828 Personal history of other malignant neoplasm of skin; Z96.643 Presence of artificial hip joint, bilateral; Z85.79 Personal history of other malignant neoplasms of lymphoid, hematopoietic and related tissues; Z92.21 Personal history of antineoplastic chemotherapy; Z86.711 Personal history of pulmonary embolism; Z79.01 Long term (current) use of anticoagulants; Z98.1 Arthrodesis status; Z79.899 Other long term (current) drug therapy; Z91.048 Other nonmedicinal substance allergy status

== ENCOUNTER → 2025-04-29 | Outpatient (CLI) | payer MEDICARE, BC ==
[~2025-04-29] MED LIST changes: +FURO40TA2 PO; +KALEPOW PO
== END ==
LOC: M SOG 07:41
PROVIDERS: ATTEND Orthopaedic Surgery
DX: S72.115D Nondisplaced fracture of greater trochanter of left femur, subsequent encounter for closed fracture with routine healing (principal); M25.552 Pain in left hip; Z53.9 Procedure and treatment not carried out, unspecified reason

== ENCOUNTER → 2025-05-06 | Outpatient (CLI) | payer MEDICARE, BC | LOC: M SOG 07:36 | PROVIDERS: ATTEND Orthopaedic Surgery | DX: S72.115D Nondisplaced fracture of greater trochanter of left femur, subsequent encounter for closed fracture with routine healing (principal); M25.552 Pain in left hip; M97.02XD Periprosthetic fracture around internal prosthetic left hip joint, subsequent encounter ==